=== PATIENT | male | born 1960 | race Caucasian/White ===

== ENCOUNTER → 2019-08-20 09:55 | Outpatient (BNVA) | payer MEDICARE, MEDICAID, SELFPAY | PROVIDERS: Family Provider Family Medicine; PCP Family Medicine; Visit Provider Family Medicine | DX: F41.1 Generalized anxiety disorder (principal); F51.04 Psychophysiologic insomnia; R68.89 Other general symptoms and signs; J01.90 Acute sinusitis, unspecified; B96.89 Other specified bacterial agents as the cause of diseases classified elsewhere | CPT/HCPCS: 87804 ==

== ENCOUNTER 2019-08-29 12:27 | Outpatient (CLI) | payer MEDICARE, MEDICAID, SELFPAY ==
[2019-08-29 13:18] LABS: Testosterone Total 9.9 ng/dL (193-740)
[2019-08-29 13:19] LABS: Prostate Specific Antigen 0.19 ng/mL (0-4)
[2019-08-29 13:30] LABS: Alanine Aminotransferase 28 U/L (0-41); Alkaline Phosphatase 80 IU/L (40-130); Anion Gap 18.1 (5-19); Aspartate Amino Transferase 20 U/L (0-40); Blood Urea Nitrogen 18 mg/dL (8-23); Calcium 9.7 mg/dL (8.5-10.5); Carbon Dioxide 25 mmol/L (22-29); Chloride 98 mmol/L (98-107); Glomerular Filtration Rate 98.6 mL/min (90-130); Glucose 113 mg/dL (65-115); Potassium 4.1 mmol/L (3.5-5.1); Sodium 137 mmol/L (136-145); Total Bilirubin 0.2 mg/dL (0.15-1.2)
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
== END 2019-08-29 12:28 | disposition home or self-care (01) ==
LOC: ONCMED 12:30
PROVIDERS: Family Provider Family Medicine; PCP Family Medicine; Visit Provider Internal Medicine Hematology & Oncology
DX: Z08 Encounter for follow-up examination after completed treatment for malignant neoplasm (principal); Z85.46 Personal history of malignant neoplasm of prostate; K57.30 Diverticulosis of large intestine without perforation or abscess without bleeding; I73.9 Peripheral vascular disease, unspecified; K42.9 Umbilical hernia without obstruction or gangrene; K40.90 Unilateral inguinal hernia, without obstruction or gangrene, not specified as recurrent; Z79.818 Long term (current) use of other agents affecting estrogen receptors and estrogen levels; Z79.899 Other long term (current) drug therapy; Z79.891 Long term (current) use of opiate analgesic; Z92.3 Personal history of irradiation; Z92.23 Personal history of estrogen therapy
CPT/HCPCS: 80053; 84153; 84403; G0463

== ENCOUNTER 2019-11-29 10:23 | Outpatient (CLI) | payer MEDICARE, MEDICAID, SELFPAY ==
[2019-11-29 11:21] LABS: Basophils % 0.6 %; Eosinophils # 0.3 10^3/uL (0.0-0.8); Eosinophils % 3.7 %; Hematocrit 42.4 % (42.0-52.0); Hemoglobin 13.4 g/dL (11.7-16.6); Lymphocytes # 2.8 10^3/uL (0.8-4.8); Lymphocytes % 38.5 %; Mean Corpuscular HGB Conc 31.6 g/dL (30.0-36.0); Mean Corpuscular Hemoglobin 28.2 pg (28.0-34.0); Mean Corpuscular Volume 89.1 fL (80-94); Mean Platelet Volume 8.8 fL (7.4-10.4); Monocytes # 0.9 10^3/uL (0.2-0.9); Neutrophils # 3.2 10^3/uL (1.8-7.7); Neutrophils % 44.5 %; Nucleated Red Blood Cells % 0 %; Platelet Count 284 10^3/cmm (130-400); Red Blood Count 4.76 10^6/uL (4.1-5.3); Red Cell Distribution Width 12.4 % (12.1-15.1); White Blood Count 7.2 10^3/uL (4.0-10.0)
[2019-11-29 11:56] LABS: Prostate Specific Antigen 0.17 ng/mL (0-4)
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
[2019-11-29 12:07] LABS: Alanine Aminotransferase 41 U/L (0-41); Albumin Level 4.5 g/dL (3.5-5.2); Alkaline Phosphatase 78 IU/L (40-130); Anion Gap 18.4 (5-19); Aspartate Amino Transferase 27 U/L (0-40); Blood Urea Nitrogen 21 mg/dL (8-23); Calcium 9.1 mg/dL (8.5-10.5); Carbon Dioxide 25 mmol/L (22-29); Chloride 102 mmol/L (98-107); Globulin 2.3 g/dL (1.3-4.6); Glomerular Filtration Rate 114.6 mL/min (90-130); Glucose 104 mg/dL (65-115); Osmolality Calculated 289 mOsm/kg (285-295); Potassium 4.4 mmol/L (3.5-5.1); Sodium 141 mmol/L (136-145); Total Bilirubin 0.2 mg/dL (0.15-1.2); Total Protein 6.8 g/dL (6.6-8.7)
== END 2019-11-29 10:24 | disposition home or self-care (01) ==
LOC: ONCMED 10:30
PROVIDERS: PCP Family Medicine; Visit Provider Internal Medicine Hematology & Oncology
DX: C61 Malignant neoplasm of prostate (principal); Z92.23 Personal history of estrogen therapy
CPT/HCPCS: 36415; 80053; 84153; 84403; 85025; G0463

== ENCOUNTER → 2020-01-15 14:45 | Outpatient (BNVA) | payer MEDICARE, MEDICAID, SELFPAY | PROVIDERS: PCP Family Medicine; Visit Provider Urology | DX: R39.9 Unspecified symptoms and signs involving the genitourinary system (principal); N32.3 Diverticulum of bladder; C61 Malignant neoplasm of prostate; R33.9 Retention of urine, unspecified; N40.0 Benign prostatic hyperplasia without lower urinary tract symptoms | CPT/HCPCS: 81001 ==

== ENCOUNTER 2020-03-18 14:08 | Outpatient (CLI) | payer MEDICARE, MEDICAID, SELFPAY ==
[2020-03-18 15:16] LABS: Prostate Specific Antigen 0.163 ng/mL (0-4)
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
== END 2020-03-18 14:09 | disposition home or self-care (01) ==
LOC: ONCMED 14:14
PROVIDERS: PCP Family Medicine; Visit Provider Internal Medicine Hematology & Oncology
DX: Z08 Encounter for follow-up examination after completed treatment for malignant neoplasm (principal); Z85.46 Personal history of malignant neoplasm of prostate; Z92.3 Personal history of irradiation; R30.9 Painful micturition, unspecified; Z92.23 Personal history of estrogen therapy
CPT/HCPCS: 84153; G0463

== ENCOUNTER 2020-03-31 11:11 | Inpatient (IN) | payer MEDICARE, SELFPAY ==
[2020-03-31] VITALS (10 sets, daily range): BP systolic 84–125; BP diastolic 57–86; PULSE 118–145; RESP 16–24; TEMP 36.8–36.9; O2SAT 93–96; BMI 34.9
--- NOTE | 2020-03-31 12:07 | XR_ITS ---
WS: [id number] XR chest 1V portable [id number] REASON FOR EXAM: sepsis FINDINGS: Heart and mediastinum are within normal limits. No active pulmonary parenchymal pleural disease is noted. Bony thorax is intact. XR/XR chest 1V portable [id number] IMPRESSION: No acute chest abnormality.
[2020-03-31] MEDS: ondansetron 2 mg/ML SDV 2 mL 4 MG IVP (12:14)
[2020-03-31] MEDS: LORazepam 2 mg/mL INJ 1 mL 0.5 MG IVP (12:16)
[2020-03-31] MEDS: fentaNYL 50 mcg/mL INJ 2mL 100 MCG IVP (12:17)
[2020-03-31 12:23] LABS: Basophils # 0.1 10^3/uL (0.0-0.1); Basophils % 0.4 %; Eosinophils % 0.1 %; Hematocrit 44.1 % (42.0-52.0); Hemoglobin 13.9 g/dL (11.7-16.6); Lymphocytes % 8.1 %; Mean Corpuscular HGB Conc 31.5 g/dL (30.0-36.0); Mean Corpuscular Hemoglobin 28.4 pg (28.0-34.0); Mean Corpuscular Volume 90.2 fL (80-94); Mean Platelet Volume 9.1 fL (7.4-10.4); Monocytes # 0.2 10^3/uL (0.2-0.9); Monocytes % 1.9 %; Neutrophils # 11.34 10^3/uL (1.8-7.7); Neutrophils % 89.2 %; Nucleated Red Blood Cells % 0 %; Platelet Count 278 10^3/cmm (130-400); Red Blood Count 4.89 10^6/uL (4.1-5.3); Red Cell Distribution Width 12.8 % (12.1-15.1); White Blood Count 12.7 10^3/uL (4.0-10.0)
[2020-03-31] MEDS: piperacillin-tazobactam 3.375 GM in sodium chloride 0.9% (plus) 50 ML IV ×2 (12:35→21:59)
[2020-03-31 12:46] LABS: INR 0.87 (0.8-1.2)
[2020-03-31 12:50] LABS: Lactic Sepsis W/Reflex 3.9 mmol/L (0.5-2.2)
[2020-03-31 13:12] LABS: Alanine Aminotransferase 36 U/L (0-41); Albumin Level 4.6 g/dL (3.5-5.2); Alkaline Phosphatase 98 IU/L (40-130); Anion Gap 18.9 (5-19); Aspartate Amino Transferase 28 U/L (0-40); Blood Urea Nitrogen 16 mg/dL (8-23); Calcium 9.5 mg/dL (8.5-10.5); Carbon Dioxide 19 mmol/L (22-29); Chloride 100 mmol/L (98-107); Globulin 3.3 g/dL (1.3-4.6); Glomerular Filtration Rate 61.6 mL/min (90-130); Glucose 105 mg/dL (65-115); Osmolality Calculated 280 mOsm/kg (285-295); Potassium 3.9 mmol/L (3.5-5.1); Sodium 134 mmol/L (136-145); Total Bilirubin 0.4 mg/dL (0.15-1.2); Total Protein 7.9 g/dL (6.6-8.7)
[2020-03-31 13:34] LABS: Add Urine Microscopic? YES; Bilirubin Urine 1+ (Negative); Blood Urine 2+ (Negative); Glucose Urine UA Norm (Normal); Ketones Urine Negative (Negative); Leukocyte Esterase Urine Trace (Negative); Nitrate Urine Positive (Negative); Protein Urine 1+ (Negative); Specific Gravity, Urine 1.015 (1.005-1.030); Urine Appearance Hazy (CLEAR); Urine Color Orange (Yellow); Urobilinogen Urine 1 mg/dL (Negative); pH Urine 6 (5-7)
[2020-03-31 13:36] LABS: RBC Urine 50-80 /hpf (0-2); WBC Urine 15-25 /hpf (0-5)
[2020-03-31 13:37] LABS: Add Urine Culture? No; Bacteria Urine 2+ /hpf; Squamous Epithelial Cell Urine 0-4 /hpf (0-5); Transitional Epi Cells Urine 0-4 /hpf
[2020-03-31 14:03] LABS: Reflex Lactate Order REFLEX LACTIC ORDERD
--- NOTE | 2020-03-31 14:18 | ECG_ITS ---
[facility] Test Date: 2020-03-31 Pat Name: Conrad Montez Department: Room: Gender: Male Radiology Manager: : 1960 Requested By: Micki Schumacher Order Number: [id number] Juan MD: Shanice Villavicencio M.D. Measurements Intervals [place] Rate: 148 P: 47 VA: 142 QRS: 30 QRSD: 90 T: 48 QT: 285 QTc: 448 Interpretive Statements SINUS TACHYCARDIA, POSSIBLE ATRIAL FLUTTER INDETERMINATE AXIS ABNORMAL RHYTHM ECG No previous ECG available for comparison Electronically Signed On 03-31-2020 20:54:22 CDT by Shanice Villavicencio M.D. [id number]
[2020-03-31 14:35] LABS: Magnesium 1.7 mg/dL (1.7-2.3)
[2020-03-31 15:34] LABS: Lactic Acid level (Lactate) 2.1 mmol/L (0.5-2.2)
--- NOTE | 2020-03-31 15:53 | ED_ITS ---
HPI - Male Genitourinary General: Chief complaint: Urogenital-Male Stated complaint: genital area pain Time Seen by Provider: 03/31/20 11:59 History of Present Illness: HPI Narrative: This patient is a 59-year-old male presents today with abdominal pain. He said he has not been able to urinate for at least 24 hours. He is quite vague on when the last time he was able to urinate normally. It sounds like the symptoms have been progressing over the past several weeks. He is got a history of prostate cancer and had a radical prostatectomy. He is also had radiation treatment. He sees Dr. Randolph. He has had some nausea and constipation as well. He complains of pain in his whole genital area. MD Complaint: other (Unable to urinate, abdominal pain and genital pain) Onset (ago): hour(s) (24) Duration: progressively worsening Location: penis, right testicle, left testicle, right inguinal region, left inguinal region and abdomen Severity: severe Quality: aching and burning Relieving factors: none Exacerbating factors: none Context: other (History of prostate cancer) Associated symptoms: Reports fevers/chills, nausea and urinary retention Review of Systems General: Reports: 10 or more systems reviewed and unremarkable except in HPI and below Const: Denies: fatigue or malaise Eyes: Denies: change in vision ENMT: Denies: odynophagia Card: Denies: chest pain or swelling of feet/ankles Resp: Denies: dyspnea, productive cough or non-productive cough GI: Reports: nausea : Denies: flank pain Musc: Denies: neck pain or back pain Skin/Breast: Denies: rash Neuro: Denies: headache(s), numbness in extremities or weakness in extremities Raymond/Lymph: Denies: easy bruising or easy bleeding PFSH ED PFSH: Medical History Bladder diverticulum BPH (benign prostatic hyperplasia) Chronic pain Erectile dysfunction CHAMP (generalized anxiety disorder) Incomplete bladder emptying Lower urinary tract symptoms Prostate cancer PTSD (post-traumatic stress disorder) Surgical History History of back surgery History of bladder surgery History of elbow surgery History of prostate biopsy Status post colon resection SIGMOID RESECTION Status post decompression of ulnar nerve Family History Father , FATHER AT AGE 48-[place] No problems noted. Mother , AT AGE 80-[place] No problems noted. Social History Smoking and tobacco status: never smoked Alcohol intake: never Marital status: Current occupational status: disabled History of recent travel: No Current gender identity: Male Physical Exam Const: COMMON NORMALS: patient oriented x3, no limitations and alert GENERAL APPEARANCE: cooperative HENMT: HEAD & SCALP: normal to inspection FACE & SINUS: normal facial exam Eye: GENERAL EYE: appearance normal, both eyes and all related structures Neck/C-Spine: COMMON NORMALS: supple, no meningeal signs and no JVD Chest: COMMONS NORMALS: normal inspection of the chest Resp: COMMON NORMALS: normal respiratory effort, No use of accessory muscles and clear to auscultation bilaterally AUSCULTATION: clear to auscultation bilaterally Cardio: COMMON NORMALS: no JVD, regular rate, regular rhythm and No murmurs present (Cardio) RATE: regular rate RHYTHM: regular rhythm GI: COMMON NORMALS: Normal to inspection, nondistended, normoactive bowel sounds present INSPECTION: Yes abdominal distension PALPATION: Yes Tenderness to palpation present (GI) and Yes Bladder palpation abnormal : COMMON NORMALS: Yes Testes normal, Yes scrotum normal and Yes no scrotal swelling BLADDER/KIDNEY EXAM: Yes Bladder palpation abnormal MALE GROIN/PERINEUM EXAM: No edema, No erythema, No perineal induration, No Perineum crepitus present and No tenderness Back/Pelvis: COMMON NORMALS: thoracic and lumbar spine normal to inspection Extremity: COMMON NORMALS: normal to inspection Neuro: COMMON NORMALS: patient oriented x3, moves all extremities, no focal motor deficits and no sensory deficits noted SENSORIUM/ORIENTATION: Yes alert MENINGEAL SIGNS: Yes no meningeal signs Psych: COMMON NORMALS: mental status grossly normal, cooperative and normal affect Skin: COMMON NORMALS: no rashes or lesions noted and turgor normal GENERAL SKIN EXAM: no rashes or lesions noted and turgor normal Course ED course: Patient was in significant distress on arrival. He was also markedly tachycardic in the 150s with hypotension with a systolic in the 80s. He was given 30 ml per kilo of fluids and IV antibiotics. Garcia catheter was placed and drained 2 L of fluid immediately. The nurse then clamped the Garcia but later another liter was drained. Patient has significant relief of his pain with this. His blood pressure also responded to the fluids. His heart rate came down into the 120s and his blood pressure came up into the 110s to 120s. Dr. Randolph's been consulted and will see the patient. He will be admitted to the cardiac stepdown unit with close monitoring. Hospitalist will admit. Vital Signs: Vital signs: Vital Signs Temperature 98.2 F 03/31/20 19:58 Pulse Rate 118 H 03/31/20 19:58 Respiratory Rate 20 H 03/31/20 19:58 Blood Pressure 99/57 03/31/20 19:58 Pulse Oximetry 94 03/31/20 19:58 MDM - Male Lab Data: Labs: Lab Results 03/31/20 03/31/20 03/31/20 Range/Units 12:05 12:05 12:05 WBC 12.7 H (4.0-10.0) 10^3/ uL RBC 4.89 (4.1-5.3) 10^6/u L Hgb 13.9 (11.7-16.6) g/dL Hct 44.1 (42.0-52.0) % MCV 90.2 (80-94) fL MCH 28.4 (28.0-34.0) pg MCHC 31.5 (30.0-36.0) g/dL RDW 12.8 (12.1-15.1) % Plt Count 278 (130-400) 10^3/c mm MPV 9.1 (7.4-10.4) fL Neut % (Auto) 89.2 % Lymph % (Auto) 8.1 % [place] % (Auto) 1.9 % Eos % (Auto) 0.1 % Baso % (Auto) 0.4 % Neut # (Auto) 11.34 H (1.8-7.7) 10^3/u L Lymph # (Auto) 1.0 (0.8-4.8) 10^3/u L [place] # (Auto) 0.2 (0.2-0.9) 10^3/u L Eos # (Auto) 0.0 (0.0-0.8) 10^3/u L Baso # (Auto) 0.1 (0.0-0.1) 10^3/u L Nucleated RBC % (a uto) 0 % Nucleated RBCs # 0.0 /100WBC PT 12.10 (12.1-14.9) SECO NDS INR 0.87 (0.8-1.2) Sodium 134 L (136-145) mmol/L Potassium 3.9 (3.5-5.1) mmol/L Chloride 100 (98-107) mmol/L Carbon Dioxide 19 L (22-29) mmol/L Anion Gap 18.9 (5-19) BUN 16 (8-23) mg/dL Creatinine 1.2 (0.7-1.2) mg/dL GFR Calculation 61.6 L (90-130) mL/min Glucose 105 (65-115) mg/dL Calculated Osmolal ity 280 L (285-295) mOsm/k g Lactic Acid (0.5-2.2) mmol/L Lactic Acid (Sepsi s) (0.5-2.2) mmol/L Calcium 9.5 (8.5-10.5) mg/dL Magnesium (1.7-2.3) mg/dL Total Bilirubin 0.4 (0.15-1.2) mg/dL AST 28 (0-40) U/L ALT 36 (0-41) U/L Alkaline Phosphata se 98 (40-130) IU/L Total Protein 7.9 (6.6-8.7) g/dL Albumin 4.6 (3.5-5.2) g/dL Globulin 3.3 (1.3-4.6) g/dL Procalcitonin 2.80 H (0-0.5) ng/mL Urine Color (Yellow) Urine Appearance (CLEAR) Urine pH (5-7) Ur Specific Gravit y (1.005-1.030) Urine Protein (Negative) Urine Glucose (UA) (Normal) Urine Ketones (Negative) Urine Blood (Negative) Urine Nitrate (Negative) Urine Bilirubin (Negative) Urine Urobilinogen (Negative) mg/dL Ur Leukocyte Adriana ase (Negative) Urine RBC (0-2) /hpf Urine WBC (0-5) /hpf Ur Squamous Epith Cells (0-5) /hpf Ur Transition Epit h Cell /hpf Amorphous Sediment Urine Bacteria (NONE) /hpf 03/31/20 03/31/20 03/31/20 Range/Units 12:05 12:05 12:28 WBC (4.0-10.0) 10^3/ uL RBC (4.1-5.3) 10^6/u L Hgb (11.7-16.6) g/dL Hct (42.0-52.0) % MCV (80-94) fL MCH (28.0-34.0) pg MCHC (30.0-36.0) g/dL RDW (12.1-15.1) % Plt Count (130-400) 10^3/c mm MPV (7.4-10.4) fL Neut % (Auto) % Lymph % (Auto) % [place] % (Auto) % Eos % (Auto) % Baso % (Auto) % Neut # (Auto) (1.8-7.7) 10^3/u L Lymph # (Auto) (0.8-4.8) 10^3/u L [place] # (Auto) (0.2-0.9) 10^3/u L Eos # (Auto) (0.0-0.8) 10^3/u L Baso # (Auto) (0.0-0.1) 10^3/u L Nucleated RBC % (a uto) % Nucleated RBCs # /100WBC PT (12.1-14.9) SECO NDS INR (0.8-1.2) Sodium (136-145) mmol/L Potassium (3.5-5.1) mmol/L Chloride (98-107) mmol/L Carbon Dioxide (22-29) mmol/L Anion Gap (5-19) BUN (8-23) mg/dL Creatinine (0.7-1.2) mg/dL GFR Calculation (90-130) mL/min Glucose (65-115) mg/dL Calculated Osmolal ity (285-295) mOsm/k g Lactic Acid 3.9 H (0.5-2.2) mmol/L Lactic Acid (Sepsi s) (0.5-2.2) mmol/L Calcium (8.5-10.5) mg/dL Magnesium 1.7 (1.7-2.3) mg/dL Total Bilirubin (0.15-1.2) mg/dL AST (0-40) U/L ALT (0-41) U/L Alkaline Phosphata se (40-130) IU/L Total Protein (6.6-8.7) g/dL Albumin (3.5-5.2) g/dL Globulin (1.3-4.6) g/dL Procalcitonin (0-0.5) ng/mL Urine Color Maries (Yellow) Urine Appearance Hazy A (CLEAR) Urine pH 6 (5-7) Ur Specific Gravit y 1.015 (1.005-1.030) Urine Protein 1+ H (Negative) Urine Glucose (UA) Norm (Normal) Urine Ketones Negative (Negative) Urine Blood 2+ H (Negative) Urine Nitrate Positive H (Negative) Urine Bilirubin 1+ H (Negative) Urine Urobilinogen 1 H (Negative) mg/dL Ur Leukocyte Adriana ase Trace H (Negative) Urine RBC 50-80 H (0-2) /hpf Urine WBC 15-25 H (0-5) /hpf Ur Squamous Epith Cells 0-4 H (0-5) /hpf Ur Transition Epit h Cell 0-4 /hpf Amorphous Sediment Not Reportable Urine Bacteria 2+ H (NONE) /hpf 03/31/20 Range/Units 15:11 WBC (4.0-10.0) 10^3/ uL RBC (4.1-5.3) 10^6/u L Hgb (11.7-16.6) g/dL Hct (42.0-52.0) % MCV (80-94) fL MCH (28.0-34.0) pg MCHC (30.0-36.0) g/dL RDW (12.1-15.1) % Plt Count (130-400) 10^3/c mm MPV (7.4-10.4) fL Neut % (Auto) % Lymph % (Auto) % [place] % (Auto) % Eos % (Auto) % Baso % (Auto) % Neut # (Auto) (1.8-7.7) 10^3/u L Lymph # (Auto) (0.8-4.8) 10^3/u L [place] # (Auto) (0.2-0.9) 10^3/u L Eos # (Auto) (0.0-0.8) 10^3/u L Baso # (Auto) (0.0-0.1) 10^3/u L Nucleated RBC % (a uto) % Nucleated RBCs # /100WBC PT (12.1-14.9) SECO NDS INR (0.8-1.2) Sodium (136-145) mmol/L Potassium (3.5-5.1) mmol/L Chloride (98-107) mmol/L Carbon Dioxide (22-29) mmol/L Anion Gap (5-19) BUN (8-23) mg/dL Creatinine (0.7-1.2) mg/dL GFR Calculation (90-130) mL/min Glucose (65-115) mg/dL Calculated Osmolal ity (285-295) mOsm/k g Lactic Acid (0.5-2.2) mmol/L Lactic Acid (Sepsi s) 2.1 (0.5-2.2) mmol/L Calcium (8.5-10.5) mg/dL Magnesium (1.7-2.3) mg/dL Total Bilirubin (0.15-1.2) mg/dL AST (0-40) U/L ALT (0-41) U/L Alkaline Phosphata se (40-130) IU/L Total Protein (6.6-8.7) g/dL Albumin (3.5-5.2) g/dL Globulin (1.3-4.6) g/dL Procalcitonin (0-0.5) ng/mL Urine Color (Yellow) Urine Appearance (CLEAR) Urine pH (5-7) Ur Specific Gravit y (1.005-1.030) Urine Protein (Negative) Urine Glucose (UA) (Normal) Urine Ketones (Negative) Urine Blood (Negative) Urine Nitrate (Negative) Urine Bilirubin (Negative) Urine Urobilinogen (Negative) mg/dL Ur Leukocyte Adriana ase (Negative) Urine RBC (0-2) /hpf Urine WBC (0-5) /hpf Ur Squamous Epith Cells (0-5) /hpf Ur Transition Epit h Cell /hpf Amorphous Sediment Urine Bacteria (NONE) /hpf Discharge Plan Discharge Patient Disposition: Admitted As Inpatient Admit Provider: Damien Rios Clinical Impression: Acute retention of urine Urinary tract infection Qualifiers: Urinary tract infection type: site unspecified Hematuria presence: with hematuria Qualified Code(s): N39.0 - Urinary tract infection, site not specified Sepsis Qualifiers: Sepsis type: sepsis due to unspecified organism Sepsis acute organ dysfunction status: unspecified Qualified Code(s): A41.9 - Sepsis, unspecified organism Condition: Stable Referrals: Elaine Escalante DO [Primary Care Provider] - Discharge Date/Time: 03/31/20 17:06 Coding Level of Care Code ED Database Administration Manager for [facility] Fwd Exam Comprehensive
[2020-03-31] MEDS: lactated ringers 1,000 ML 999 ML IV (16:14)
[2020-03-31] MEDS: sodium chloride 0.9% 1,000 ML 150 ML IV (17:17)
--- NOTE | 2020-03-31 17:38 | P.HP_ITS ---
Providers/Chief Complaint Admitting Physician: Damien Rios MD Primary Care Provider: Elaine Escalante DO Chief Complaint: genital area pain History of Present Illness Conrad Montez is a 59 year old male with PMH of adenocarcinoma of the prostate s/p prostate cancer with large volume Liliam 4+3 and 3+4 and PSA at approximately 10 at diagnosis.S/P radiation therapy plus hormonal manipulation.Was admitted today with acute urinary retention.He is having difficulty passing urine for the last 3 days and it have progressively got worsened to the point that he has not passed any urine in the last 24h. He denies any, fever,chills,cough,sob,nausea,vomitting,abdominal pain,chest anjel n,palpitation. I the E.R Mcadams tube was placed for acute urinary retention and 2l urine output was acheived. He was also hypotensive in the ER with sbp in high 8os , he responded to fluid bolus. Patient was worked up for acute urinary retention and sepsis likely 2/2 to UTI. Lactic acid is :3.9, Procalcitonin is : 2.8 WBC : 12.7 , Urine analysis : Dirty. Blood Culture :Collected. EKG:Sinus Tachycardia Xray Chest : No acute chest abnormality Review of Systems General: Reports: 10 or more systems reviewed and unremarkable except in HPI and below Const: Denies: fever(s), chills, body aches, change in appetite or diaphoresis Card: Denies: palpitations, edema, swelling of feet/ankles, dyspnea on exertion, orthopnea or leg pain with exertion Resp: Denies: dyspnea, productive cough, wheezing or pain on inspiration GI: Denies: abdominal pain, nausea, vomiting, diarrhea or constipation Musc: Denies: back pain, extremity pain or extremity swelling Neuro: Denies: headache(s), difficulty walking or confusion Medications/Allergies Home Medications Medication Instructions Recorded Confirmed Last Taken Type venlafaxine 150 mg 150 mg PO DAILY #90 cap 08/20/19 03/31/20 Unknown Rx capsule,extended release 24 hr tamsulosin 0.4 mg capsule 0.4 mg PO BID #180 cap 01/15/20 03/31/20 03/30/20 Rx hydrocodone-acetaminophen 1 - 2 tab PO Q4H PRN 03/31/20 03/31/20 03/31/20 11:00 History 2 tabs naproxen sodium [Aleve] 660 mg PO PRN 03/31/20 03/31/20 Unknown History trazodone 150 mg PO BEDTIME 03/31/20 03/31/20 03/30/20 History Allergies Allergy/AdvReac Type Severity Reaction Status Date / Time No Known Allergies Allergy Verified 03/31/20 14:29 PFSH Acute PFSH: Medical History Bladder diverticulum BPH (benign prostatic hyperplasia) Chronic pain Erectile dysfunction CHAMP (generalized anxiety disorder) Incomplete bladder emptying Lower urinary tract symptoms Prostate cancer PTSD (post-traumatic stress disorder) Surgical History History of back surgery History of bladder surgery History of elbow surgery History of prostate biopsy Status post colon resection SIGMOID RESECTION Status post decompression of ulnar nerve Family History Father , FATHER AT AGE 48-[place] No problems noted. Mother , AT AGE 80-[place] No problems noted. Social History Smoking and tobacco status: never smoked Alcohol intake: never Marital status: Current occupational status: disabled History of recent travel: No Current gender identity: Male Vitals/I&O/Wt Last Vital Signs Temp 98.5 F 03/31/20 11:48 Pulse 121 H 03/31/20 17:00 Resp 24 H 03/31/20 17:00 BP 99/65 03/31/20 17:00 Pulse Ox 96 03/31/20 17:00 03/31/20 03/31/20 03/31/20 06:59 14:59 22:59 Intake Total 3300 / 3300 Output Total 3000 / 3000 Balance 300 / 300 Weight last 48 hrs Weight 104.326 kg Physical Exam Const: COMMON NORMALS: patient oriented x3 HENMT: COMMON NORMALS: normocephalic, atraumatic, hearing grossly normal bilaterally and external ears normal HEAD & SCALP: normocephalic and at raumatic EXTERNAL EAR: Yes external ears normal Eye: COMMON NORMALS: no scleral icterus GENERAL EYE: appearance normal, both eyes and all related structures Chest: COMMONS NORMALS: normal inspection of the chest and normal palpation of entire chest wall CHEST: Yes Symmetrical chest wall rise Resp: COMMON NORMALS: normal respiratory effort, No retractions, No use of accessory muscles and clear to auscultation bilaterally EFFORT & INSPECTION: Yes symmetric chest movement AUSCULTATION: clear to auscultation bilaterally Cardio: COMMON NORMALS: regular rate, regular rhythm, S1 normal heart sound present, S2 normal heart sound present, No gallops present (Cardio), No murmurs present (Cardio), No rub (Cardio) and Peripheral pulses 2+ throughout RATE: regular rate RHYTHM: regular rhythm HEART SOUNDS: S1 normal heart sound present and S2 normal heart sound present PERIPHERAL PULSES: Peripheral pulses 2+ throughout GI: COMMON NORMALS: Normal to inspection, nondistended, normoactive bowel sounds present, Soft to palpation, non-tender, No hepatosplenomegaly present and no masses AUSCULTATION: Yes normoactive bowel sounds PALPATION: Yes Soft to palpation and Yes No hepatosplenomegaly present RECTAL EXAM: Yes deferred : COMMON NORMALS: Yes no CVA tenderness BLADDER/KIDNEY EXAM: Yes no CVA tenderness Back/Pelvis: COMMON NORMALS: no CVA tenderness Extremity: COMMON NORMALS: no clubbing, cyanosis or edema and no pedal edema Neuro: COMMON NORMALS: patient oriented x3 Urinary Catheter Management^: Mcadams: Cath Placed During This Visit: yes Urinary Catheter Date of Insertion: 03/31/20 Data : 03/31/20 12:05 03/31/20 12:05 Micro: Microbiology 03/31/20 12:50 Blood Culture - Preliminary Blood SPECIMEN COLLECTED 03/31/20 12:54 Blood Culture - Preliminary Blood SPECIMEN COLLECTED A&P Assessment and plan (1) Sepsis: Patient was worked up for acute urinary retention and sepsis likely 2/2 to UTI hypotensive in the ER with sbp in high 8os , he responded to fluid bolus. Lactic acid is :3.9, Procalcitonin is : 2.8 WBC : 12.7 , Urine analysis : Dirty. Blood Culture :Collected. EKG:Sinus Tachycardia Xray Chest : No acute chest abnormality Currently on vancomycin and Zosyn Will repeat lactic acid and procal. Will continue with I.V Hydration. Status: Acute Qualifiers: Sepsis acute organ dysfunction status: unspecified Sepsis type: sepsis due to unspecified organism Qualified Code(s): A41.9 - Sepsis, unspecified organism (2) Acute retention of urine: Currently has indwelling mcadams cath. is on board. Appreciate Rec. Status: Acute (3) Urinary tract infection: Plan as 1 . Status: Acute Qualifiers: Hematuria presence: with hematuria Urinary tract infection type: site unspecified Qualified Code(s): N39.0 - Urinary tract infection, site not specified; R31.9 - Hematuria, unspecified (4) Bladder diverticulum: Status: Acute (5) Prostate cancer: No acute Intervention.Follow as outpatient Status: Acute (6) Chronic insomnia: On Trazadone Status: Chronic (7) CHAMP (generalized anxiety disorder): No acute Intervention. Venlafaxine 150 mg er po daily Status: Chronic Additional A&P Information Code Status: Full Code DVT PPX: Lovenox 40 mg sc daily Attestations Medical Necessity Statement*: Patient need to be in hospital for sepsis management. Coding Level of Care Code Acute Digital Developer for [facility] Fwd Diagnoses Sepsis A41.9 Sepsis acute organ dysfunction status: unspecified Sepsis type: sepsis due to unspecified organism Acute retention of urine R33.8 Urinary tract infection N39.0; R31.9 Hematuria presence: with hematuria Urinary tract infection type: site unspecified Bladder diverticulum N32.3 Prostate cancer C61 Chronic insomnia F51.04 CHAMP (generalized anxiety disorder) F41.1
[2020-03-31] MEDS: sodium chloride 0.9% 1,000 ML 125 ML IV (17:45)
[2020-03-31] MEDS: tamsulosin 0.4 mg Capsule PO (17:46)
[2020-03-31] MEDS: enoxaparin 40 mg/0.4 mL Syringe SUBCUT (17:50)
--- NOTE | 2020-03-31 18:57 | P.CONIM_ITS ---
Providers/Reason For Consult Attending Physician: Damien Rios MD Primary Care Provider: Elaine Escalante DO History of Present Illness History of Present Illness Patient well-known to me for history of prostate cancer with large volume [place] 4+3 and 3+4 and PSA at approximately 10 at diagnosis. Treatment included radiation therapy plus hormonal manipulation. Has been followed recently by Dr. Roth at [facility]. At last visit his PSA was 0.17. PVR was measured at about 360 cc which was expected to be related to his large bladder diverticulum. He thought that his stream might be slowing down. Was placed on tamsulosin and then double dose tamsulosin and thought it made a big difference. Was scheduled to see me again in 1 year unless increasing symptoms. Presented to the emergency department today with about 2 days of difficulty voiding. Catheter was placed due to extremis and he had reportedly about 4 L of urine output per the patient. Will need to confirm that. Urine is currently clear. Immediate relief after catheter placement. Because of concern related for sepsis with tachycardia, soft blood pressure, leukocytosis, tachypnea he was admitted for IV antibiotics and supportive care. I was consulted for evaluation of voiding dysfunction. Review of Systems Const: Reports: malaise Eyes: Denies: change in vision or blurry vision ENMT: Denies: odynophagia Card: Denies: chest pain or palpitations Resp: Denies: dyspnea or productive cough GI: Reports: abdominal pain, GI cramping and rectal pain : Reports: difficulty urinating, urinary dribbling, difficulty starting urination and other Musc: Denies: joint redness or joint warmth Skin/Breast: Denies: rash Neuro: Denies: confusion, Slurred speech present or seizure-like activity Psych: Denies: anxiety Endo: Reports: hot flashes Raymond/Lymph: Denies: easy bruising or easy bleeding All/Imm: Denies: urticaria Meds/Allergies Home Medications and Allergies Home Medications Medication Instructions Recorded Confirmed Last Taken Type venlafaxine 150 mg 150 mg PO DAILY #90 cap 08/20/19 03/31/20 Unknown Rx capsule,extended release 24 hr tamsulosin 0.4 mg capsule 0.4 mg PO BID #180 cap 01/15/20 03/31/20 03/30/20 Rx hydrocodone-acetaminophen 1 - 2 tab PO Q4H PRN 03/31/20 03/31/20 03/31/20 11:00 History 2 tabs naproxen sodium [Aleve] 660 mg PO PRN 03/31/20 03/31/20 Unknown History trazodone 150 mg PO BEDTIME 03/31/20 03/31/20 03/30/20 History Allergies Allergy/AdvReac Type Severity Reaction Status Date / Time No Known Allergies Allergy Verified 03/31/20 14:29 Current Medications Current Medications Generic Name Dose Route Start Last Admin Trade Name Frenina PRN Reason Stop Dose Admin Enoxaparin Sodium 40 mg 03/31/20 18:00 03/31/20 17:50 Lovenox SUBCUT 40 mg Q24H SPRING Administration Sodium Chloride 1,000 mls @ 125 mls/hr 03/31/20 17:30 03/31/20 17:45 Sodium Chloride 0.9% IV 125 mls/hr .Q8H SPRING Administration Tamsulosin HCl 0.4 mg 03/31/20 18:00 03/31/20 17:46 Flomax PO 0.4 mg BID SPRING Administration PFSH Acute PFSH: Medical History Bladder diverticulum BPH (benign prostatic hyperplasia) Chronic pain Erectile dysfunction CHAMP (generalized anxiety disorder) Incomplete bladder emptying Lower urinary tract symptoms Prostate cancer PTSD (post-traumatic stress disorder) Surgical History History of back surgery History of bladder surgery History of elbow surgery History of prostate biopsy Status post colon resection SIGMOID RESECTION Status post decompression of ulnar nerve Family History Father , FATHER AT AGE 48-[place] No problems noted. Mother , AT AGE 80-[place] No problems noted. Social History Smoking and tobacco status: never smoked Alcohol intake: never Marital status: Current occupational status: disabled History of recent travel: No Current gender identity: Male Vitals/I&O/Wt Last Vital Signs Temp 98.5 F 03/31/20 11:48 Pulse 124 H 03/31/20 18:01 Resp 18 03/31/20 18:01 BP 99/65 03/31/20 17:00 Pulse Ox 94 03/31/20 18:01 03/31/20 03/31/20 03/31/20 06:59 14:59 22:59 Intake Total 3300 / 3300 Output Total 3000 / 3000 Balance 300 / 300 Weight last 48 hrs Weight 230 lb Physical Exam Const: COMMON NORMALS: no acute distress, alert and well nourished GENERAL APPEARANCE: well kempt and well developed ORIENTATION/CONSCIOUSNESS: not confused HENMT: COMMON NORMALS: normocephalic and atraumatic HEAD & SCALP: normocephalic and atraumatic Eye: COMMON NORMALS: conjunctivae normal and no scleral icterus CONJUNCTIVA: Yes conjunctivae normal Neck/C-Spine: COMMON NORMALS: full ROM GENERAL: Yes normal visual inspection Lymph: LYMPHATIC: no lymphedema noted Resp: COMMON NORMALS: normal respiratory effort EFFORT & INSPECTION: No labored and No Actively coughing Cardio: COMMON NORMALS: regular rate and regular rhythm RATE: regular rate RHYTHM: regular rhythm : OTHER: Normal phallus. Catheter in place draining yellow urine. Normal scrotal scrotal contents Extremity: COMMON NORMALS: no clubbing, cyanosis or edema Neuro: COMMON NORMALS: no focal motor deficits SENSORIUM/ORIENTATION: Yes alert Psych: COMMON NORMALS: mental status grossly normal APPEARANCE: Yes grossly normal and Yes well kempt ATTITUDE: Yes calm and Yes engaged Skin: COMMON NORMALS: no rashes or lesions noted and no jaundice GENERAL SKIN EXAM: no rashes or lesions noted Urinary Catheter Management^: Garcia: Cath Placed During This Visit: yes Urinary Catheter Date of Insertion: 03/31/20 Data Micro: Micro: Microbiology 03/31/20 12:50 Blood Culture - Pr eliminary Blood SPECIMEN [facility] ANA 03/31/20 12:54 Blood Culture - Pr eliminary Blood SPECIMEN [facility] A&P Assessment and plan (1) Acute retention of urine: Status: Acute (2) Sepsis: Status: Acute Qualifiers: Sepsis acute organ dysfunction status: unspecified Sepsis type: sepsis due to unspecified organism Qualified Code(s): A41.9 - Sepsis, unspecified organism (3) Bladder diverticulum: Status: Acute (4) Prostate cancer: Status: Acute Consult Attestations Medical Necessity Statement: Concern for sepsis requires hospitalization for acute care. Coding Level of Care Code Acute Director Of Occupational Therapy for Chg Fwd Diagnoses Acute retention of urine R33.8 Sepsis A41.9 Sepsis acute organ dysfunction status: unspecified Sepsis type: sepsis due to unspecified organism Bladder diverticulum N32.3 Prostate cancer C61
--- NOTE | 2020-03-31 20:57 | PC.NURSE ---
Pt IV was leaking d/t pt getting it caught while getting up. This medical technical writer assessed the Iv and it is still patent. The pt gown does have some dried blood on it and pt refuses to have gown changed at this time.
[2020-03-31] MEDS: trazodone 100 mg Tablet 150 MG PO (22:08)
[2020-04-01] VITALS (7 sets, daily range): BP systolic 101–127; BP diastolic 63–77; PULSE 99–111; RESP 16–20; TEMP 36.6–37.2; O2SAT 90–97
[2020-04-01] MEDS: sodium chloride 0.9% 1,000 ML 125 ML IV ×2 (02:58→13:32)
[2020-04-01 05:20] LABS: Basophils # 0.1 10^3/uL (0.0-0.1); Basophils % 0.4 %; Eosinophils # 0.1 10^3/uL (0.0-0.8); Hemoglobin 10.4 g/dL (11.7-16.6); Lymphocytes # 0.7 10^3/uL (0.8-4.8); Lymphocytes % 6.5 %; Mean Corpuscular HGB Conc 28.9 g/dL (30.0-36.0); Mean Corpuscular Hemoglobin 28.4 pg (28.0-34.0); Mean Corpuscular Volume 98.4 fL (80-94); Mean Platelet Volume 9.4 fL (7.4-10.4); Monocytes # 0.8 10^3/uL (0.2-0.9); Monocytes % 6.8 %; Neutrophils # 9.53 10^3/uL (1.8-7.7); Neutrophils % 84.5 %; Nucleated Red Blood Cells % 0 %; Platelet Count 201 10^3/cmm (130-400); Red Blood Count 3.66 10^6/uL (4.1-5.3); Red Cell Distribution Width 13.3 % (12.1-15.1); White Blood Count 11.3 10^3/uL (4.0-10.0)
[2020-04-01 05:58] LABS: Lactic Sepsis W/Reflex 1.3 mmol/L (0.5-2.2)
[2020-04-01 05:59] LABS: Blood Urea Nitrogen 15 mg/dL (8-23); Calcium 8.3 mg/dL (8.5-10.5); Carbon Dioxide 20 mmol/L (22-29); Chloride 111 mmol/L (98-107); Glomerular Filtration Rate 98.3 mL/min (90-130); Glucose 145 mg/dL (65-115); Magnesium 1.9 mg/dL (1.7-2.3); Osmolality Calculated 293 mOsm/kg (285-295); Phosphorus 3.1 mg/dL (2.5-4.5); Sodium 140 mmol/L (136-145)
[2020-04-01] MEDS: piperacillin-tazobactam 3.375 GM in sodium chloride 0.9% (plus) 50 ML IV ×3 (06:00→22:46)
[2020-04-01 06:01] LABS: Anion Gap 13.2 (5-19); Potassium 4.2 mmol/L (3.5-5.1)
--- NOTE | 2020-04-01 07:00 | US_ITS ---
NOTE: Report was unsigned for reason: Order was edited. Original Signature date and time was: 04/01/20 1431 WS: [id number] RENAL ULTRASOUND URINARY BLADDER ULTRASOUND HISTORY: urinary retention. COMPARISON: None available. TECHNIQUE: 2-D and color Doppler imaging of the kidney submitted. Right kidney: 11.9 cm x 6.0 cm x 5.4 cm. Normal echogenicity with no hydronephrosis or mass. Left kidney: 11.4 cm x 3.9 cm x 6.2 cm. Normal echogenicity with no hydronephrosis or mass. Aorta: Normal. Urinary Bladder: Nondistended urinary bladder. Garcia catheter is present in the bladder. [facility] US/US renal BI with bladder IMPRESSION: Normal renal ultrasound. Nondistended urinary bladder due to Garcia catheter.
[2020-04-01 07:03] LABS: Procalcitonin 24.72 ng/mL (0-0.5)
[2020-04-01] MEDS: venlafaxine ER (24HR) 150 mg Capsule PO (08:27)
[2020-04-01] MEDS: tamsulosin 0.4 mg Capsule PO ×2 (08:27→18:07)
[2020-04-01] MEDS: polyethylene glycol 3350 Pkt 17 gm PO (08:29)
--- NOTE | 2020-04-01 09:28 | P.PN_ITS ---
Subjective Subjective: Interval history: Patient was comfortably sitting in his room. Vitals and labs have been reviewed. Medications: Reviewed: Yes Vitals/I&O/Wt Last Vital Signs Temp 98.4 F 04/01/20 07:32 Pulse 99 04/01/20 07:32 Resp 18 04/01/20 07:32 BP 118/77 04/01/20 07:32 Pulse Ox 93 04/01/20 07:32 03/31/20 04/01/20 04/01/20 22:59 06:59 14:59 Intake Total 3360 / 3360 2500 / 5860 Output Total 3000 / 3000 2200 / 5200 Balance 360 / 360 300 / 660 Weight last 48 hrs Weight 104.326 kg Physical Exam Const: COMMON NORMALS: patient oriented x3 HENMT: COMMON NORMALS: normocephalic, atraumatic, hearing grossly normal bilaterally and external ears normal HEAD & SCALP: normocephalic and atraumatic EXTERNAL EAR: Yes external ears normal Eye: COMMON NORMALS: no scleral icterus GENERAL EYE: appearance normal, both eyes and all related structures Chest: COMMONS NORMALS: normal inspection of the chest and normal palpation of entire chest wall CHEST: Yes Symmetrical chest wall rise Resp: COMMON NORMALS: normal respiratory effort, No retractions, No use of accessory muscles and clear to auscultation bilaterally EFFORT & INSPECTION: Yes symmetric chest movement AUSCULTATION: clear to auscultation bilaterally Cardio: COMMON NORMALS: regular rate, regular rhythm, S1 normal heart sound present, S2 normal heart sound present, No gallops present (Cardio), No murmurs present (Cardio), No rub (Cardio) and Peripheral pulses 2+ throughout RATE: regular rate RHYTHM: regular rhythm HEART SOUNDS: S1 normal heart sound present and S2 normal heart sound present PERIPHERAL PULSES: Peripheral pulses 2+ throughout GI: COMMON NORMALS: Normal to inspection, nondistended, normoactive bowel sounds present, Soft to palpation, non-tender, No hepatosplenomegaly present and no masses AUSCULTATION: Yes normoactive bowel sounds PALPATION: Yes Soft to palpation and Yes No hepatosplenomegaly present RECTAL EXAM: Yes deferred Extremity: COMMON NORMALS: no clubbing, cyanosis or edema and no pedal edema Neuro: COMMON NORMALS: patient oriented x3 Urinary Catheter Management^: Mcadams: Cath Placed During This Visit: yes Reason for Continuing Indwelling Catheter: Acute Urinary Retention or Obstruction Urinary Catheter Date of Insertion: 03/31/20 Data : 04/01/20 04:43 04/01/20 04:43 Micro: Microbiology 03/31/20 12:50 Blood Culture - Preliminary Blood SPECIMEN COLLECTED 03/31/20 12:54 Blood Culture - Preliminary Blood SPECIMEN COLLECTED A&P Assessment and plan (1) Sepsis: Patient was worked up for acute urinary retention and sepsis likely 2/2 to UTI hypotensive in the ER with sbp in high 8os , he responded to fluid bolus. Lactic acid is :3.9, Procalcitonin is : 2.8 WBC : 12.7 , Urine analysis : Dirty. Blood Culture :Collected. EKG:Sinus Tachycardia Xray Chest : No acute chest abnormality Currently on vancomycin and Zosyn Will repeat lactic acid and procal. Will continue with I.V Hydration. Status: Acute Qualifiers: Sepsis acute organ dysfunction status: unspecified Sepsis type: sepsis due to unspecified organism Qualified Code(s): A41.9 - Sepsis, unspecified organism (2) Acute retention of urine: Currently has indwelling mcadams cath. is on board. Appreciate Rec. Status: Acute (3) Urinary tract infection: Plan as 1 . Status: Acute Qualifiers: Hematuria presence: with hematuria Urinary tract infection type: site unspecified Qualified Code(s): N39.0 - Urinary tract infection, site not specified; R31.9 - Hematuria, unspecified (4) Bladder diverticulum: Status: Acute (5) Prostate cancer: No acute Intervention.Follow as outpatient Status: Acute (6) Chronic insomnia: On Trazadone Status: Chronic (7) CHAMP (generalized anxiety disorder): No acute Intervention. Venlafaxine 150 mg er po daily Status: Chronic Additional A&P Information Code Status: Full Code DVT PPX: Lovenox 40 mg sc daily Attestations Medical Necessity Statement*: Patient needs to be hospital for management of sepsis. Coding Level of Care Code Acute Customer Service Consultant for Chg Fwd Diagnoses Sepsis A41.9 Sepsis acute organ dysfunction status: unspecified Sepsis type: sepsis due to unspecified organism Acute retention of urine R33.8 Urinary tract infection N39.0; R31.9 Hematuria presence: with hematuria Urinary tract infection type: site unspecified Bladder diverticulum N32.3 Prostate cancer C61 Chronic insomnia F51.04 CHAMP (generalized anxiety disorder) F41.1
--- NOTE | 2020-04-01 14:06 | PC.CHAP ---
Pastoral Care Encounter/Spiritual Assessment Type of Contact [] Declined parking line painter visit [] Patient/Family/Request visit [] Outpatient visit [] Follow-up visit [] Physician referral [] Code/Alert [X] Routine visit [] Staff referral [] Actively dying [] Patient sleeping [] Family support [] [] Out of room [] Palliative care [] [] Receiving care in room [] Pre-surgical visit [] Trauma [] Long length of stay [] ICU visit [] Other: Relational/Emotional Strength [] Patient feels connected with others/family/visitors/staff [] Distress [] Loneliness/isolation [] Abandonment Spirituality of Patient [] Person of Sharda [] Attends Yarsani of their Sharda [] Believes in Prayer [] Reads Bible or Yazidism materials [] There are Spiritual issues to be addressed Fast Food Cook Interventions [] Prayer [] Active listening [] Non-anxious presence [] Spiritual/emotional support [] Crisis/trauma care [] Spiritual counseling [] Bereavement support [] Provided bereavement packet [] Provided Bible/devotional materials [] Provided toy/stuffed animal, coloring book to patient or family member [] Provided Communion [] Anointing/[place] [] Salvation [] Completed spiritual assessment [] Other: Impact on Illness or Injury [] Angry [] Fearful [] Anxious [] Often cries [] Exhaustion [] Unable to work [] Unable to attend samaritan [] Unable to walk/stand [] Unable to read [] Unable to drive [] Unable to eat/drink [] Unable to sleep [] Unable to be with family [] Patient intubated [] Other: Summary Time spent with patient
[2020-04-01 14:41] LABS: Vancomycin Trough 8.5 ug/mL (10-15)
[2020-04-01] MEDS: enoxaparin 40 mg/0.4 mL Syringe SUBCUT (18:08)
[2020-04-01] MEDS: oxybutynin 5 mg Tablet PO (18:08)
[2020-04-01] MEDS: trazodone 100 mg Tablet 150 MG PO (22:45)
[2020-04-02] VITALS (8 sets, daily range): BP systolic 111–144; BP diastolic 78–91; PULSE 94–105; RESP 16–19; TEMP 36.7–37.4; O2SAT 91–94
[2020-04-02] MEDS: sodium chloride 0.9% 1,000 ML 125 ML IV (01:52)
[2020-04-02] MEDS: oxybutynin 5 mg Tablet PO (04:12)
[2020-04-02] MEDS: piperacillin-tazobactam 3.375 GM in sodium chloride 0.9% (plus) 50 ML IV (05:38)
[2020-04-02 05:45] LABS: Basophils % 0.2 %; Eosinophils # 0.1 10^3/uL (0.0-0.8); Hematocrit 31.1 % (42.0-52.0); Hemoglobin 9.7 g/dL (11.7-16.6); Lymphocytes # 1.2 10^3/uL (0.8-4.8); Lymphocytes % 11.6 %; Mean Corpuscular HGB Conc 31.2 g/dL (30.0-36.0); Mean Corpuscular Hemoglobin 28.5 pg (28.0-34.0); Mean Corpuscular Volume 91.5 fL (80-94); Mean Platelet Volume 9.8 fL (7.4-10.4); Monocytes # 1.3 10^3/uL (0.2-0.9); Monocytes % 12.5 %; Neutrophils # 7.43 10^3/uL (1.8-7.7); Neutrophils % 74.3 %; Nucleated Red Blood Cells % 0 %; Platelet Count 217 10^3/cmm (130-400); Red Cell Distribution Width 13.2 % (12.1-15.1)
[2020-04-02 06:38] LABS: Anion Gap 13.8 (5-19); Blood Urea Nitrogen 10 mg/dL (8-23); Calcium 8.5 mg/dL (8.5-10.5); Carbon Dioxide 24 mmol/L (22-29); Chloride 105 mmol/L (98-107); Creatinine Clr Calc Pharmacy 151.3625; Glucose 128 mg/dL (65-115); Osmolality Calculated 289 mOsm/kg (285-295); Potassium 3.8 mmol/L (3.5-5.1); Sodium 139 mmol/L (136-145)
[2020-04-02] MEDS: venlafaxine ER (24HR) 150 mg Capsule PO (09:21)
[2020-04-02] MEDS: tamsulosin 0.4 mg Capsule PO (09:21)
[2020-04-02] MEDS: polyethylene glycol 3350 Pkt 17 gm PO (09:21)
--- NOTE | 2020-04-02 11:48 | P.DS_ITS ---
Discharge Providers Date of Admission: 03/31/20 15:34 Date of Discharge: April 02, 2020 Attending Provider at Admission: Damien Rios MD Attending Provider at Discharge: Damien Rios MD Primary Care Provider: Elaine Escalante DO Diagnoses at Discharge Discharge Diagnosis (1) Sepsis: Status: Resolved Qualifiers: Sepsis acute organ dysfunction status: unspecified Sepsis type: sepsis due to unspecified organism Qualified Code(s): A41.9 - Sepsis, unspecified organism (2) Acute retention of urine: Status: Acute (3) Urinary tract infection: Status: Resolved Qualifiers: Hematuria presence: with hematuria Urinary tract infection type: site unspecified Qualified Code(s): N39.0 - Urinary tract infection, site not specified; R31.9 - Hematuria, unspecified (4) Bladder diverticulum: Status: Chronic (5) Prostate cancer: Status: Chronic (6) Chronic insomnia: Status: Chronic (7) CHAMP (generalized anxiety disorder): Status: Chronic Reason for Visit Reason for Visit: genital area pain Hospital Course Hospital Course: 59 year old male with PMH of adenocarcinoma of the prostate s/p prostate cancer with large volume [place] 4+3 and 3+4 and PSA at approximately 10 at diagnosis.S/P radiation therapy plus hormonal manipulation.Was admitted for acute urinary retention. On further work-up he was found to be in sepsis secondary to uti. He was started on broad-spectrum antibiotics. A Garcia catheter was also placed for acute urinary retention. Dr. Randolph was on board. Upon further discussion with him, he was to be discharged with indwelling Garcia to be followed by Dr. Randolph as an outpatient. At the time of discharge he was hemodynamically stable. He has been afebrile throughout hospital stay. Blood cultures have been negative. Urine culture has grown strep viridans sensitive to ampicillin. He was discharged on Augmentin for 10-day course. He received Vanco and Zosyn while inpatient. Physical Exam Const: COMMON NORMALS: patient oriented x3 HENMT: COMMON NORMALS: normocephalic, atraumatic, hearing grossly normal bilaterally and external ears normal HEAD & SCALP: normocephalic and atraumatic EXTERNAL EAR: Yes external ears normal Eye: COMMON NORMALS: no scleral icterus GENERAL EYE: appearance normal, both eyes and all related structures Chest: COMMONS NORMALS: normal inspection of the chest and normal palpation of entire chest wall CHEST: Yes Symmetrical chest wall rise Resp: COMMON NORMALS: normal respiratory effort, No retractions, No use of accessory muscles and clear to auscultation bilaterally EFFORT & INSPECTION: Yes symmetric chest movement AUSCULTATION: clear to auscultation bilaterally Cardio: COMMON NORMALS: regular rate, regular rhythm, S1 normal heart sound present, S2 normal heart sound present, No gallops present (Cardio), No murmurs present (Cardio), No rub (Cardio) and Peripheral pulses 2+ throughout RATE: regular rate RHYTHM: regular rhythm HEART SOUNDS: S1 normal heart sound present and S2 normal heart sound present PERIPHERAL PULSES: Peripheral pulses 2+ throughout GI: COMMON NORMALS: Normal to inspection, nondistended, normoactive bowel sounds present, Soft to palpation, non-tender, No hepatosplenomegaly present and no masses AUSCULTATION: Yes normoactive bowel sounds PALPATION: Yes Soft to palpation and Yes No hepatosplenomegaly present RECTAL EXAM: Yes deferred Extremity: COMMON NORMALS: no clubbing, cyanosis or edema and no pedal edema Neuro: COMMON NORMALS: patient oriented x3 Urinary Catheter Management^: Garcia: Cath Placed During This Visit: yes Reason for Continuing Indwelling Catheter: Acute Urinary Retention or Obstruction Urinary Catheter Date of Insertion: 03/31/20 Discharge Data Data Completed and Pending: Completed Studies During Hospitalization Category Date Time Status XR chest 1V lian ble [id number] Stat Exams 03/31/20 12:07 Completed US renal BI with bladder Routine Ultrasound 04/01/20 07:00 Completed Pending at discharge Category Date Time Status Basic Metabolic P antolin AM LABS Lab 04/03/20 04:00 Ordered Blood Culture Sta t Lab 03/31/20 12:50 Results Complete Blood Co unt w/Auto AM LABS Lab 04/03/20 04:00 Ordered Urine Culture Sta t Lab 03/31/20 12:28 Results Vancomycin Trough Timed Lab 04/02/20 22:00 Ordered Labs from last 24 hours 04/02/20 04/02/20 04/01/20 04:33 04:33 13:02 WBC 10.0 RBC 3.40 L Hgb 9.7 L Hct 31.1 L MCV 91.5 D MCH 28.5 MCHC 31.2 D RDW 13.2 Plt Count 217 MPV 9.8 Neut % (Auto) 74.3 Lymph % (Auto) 11.6 [place] % (Auto) 12.5 Eos % (Auto) 1.0 Baso % (Auto) 0.2 Neut # (Auto) 7.43 Lymph # (Auto) 1.2 [place] # (Auto) 1.3 H Eos # (Auto) 0.1 Baso # (Auto) 0.0 Nucleated RBC % (a uto) 0 Nucleated RBCs # 0.0 Sodium 139 Potassium 3.8 Chloride 105 Carbon Dioxide 24 Anion Gap 13.8 BUN 10 Creatinine 0.6 L GFR Calculation 137.0 H Glucose 128 H Calculated Osmolal ity 289 Calcium 8.5 Vancomycin Trough 8.5 L Vitals: Last Vital Signs Temp 99.1 F 04/02/20 08:00 Pulse 105 H 04/02/20 11:44 Resp 18 04/02/20 11:44 BP 138/79 04/02/20 08:00 Pulse Ox 94 04/02/20 11:44 Discharge Plan Discharge Patient Disposition: Home Condition: Stable Prescriptions: New Augmentin 875-125 mg tablet 1 tab PO Q12H Qty: 14 RF: 0 Continued tamsulosin 0.4 mg capsule 0.4 mg PO BID Qty: 180 RF: 3 venlafaxine [Effexor XR] 150 mg capsule,extended release 24hr 150 mg PO DAILY Qty: 90 RF: 1 hydrocodone-acetaminophen 10-325 mg tablet 1 - 2 tab PO Q4H PRN (Reason: Pain) RF: 0 Aleve 220 mg Tablet 660 mg PO PRN RF: 0 trazodone 100 mg tablet 150 mg PO BEDTIME RF: 0 Discharge Orders: Discharge Order (Routine); Ordered 04/02/20 Ordered By: Damien Rios Referrals: Harjinder Randolph MD [Physician] - 04/17/20 8:30 am ( has been updated.) Elaine Escalante DO [Primary Care Provider] - 04/09/20 2:00 pm Discharge Diet: Usual diet Discharge Activity: Resume usual activity Patient Instructions: Amoxicillin/Clavulanate Potassium (By mouth), Garcia Catheter Care, Urinary Tract Infection in Men (GEN), Sepsis (GEN), Urinary Leg Bag (GEN) Discharge Date/Time: 04/02/20 15:42 Discharge Attestations Time Spent in Discharge Care*: greater than 30 min Specific Discharge Activities: Specific discharge activities: educating patient, educating and/or supporting family/caregiver, discussing with pcp/other providers, discussing with director case management/social workers/dc planners, documenting/other paperwork and evaluating patient/reviewing data Status at Discharge: Cognitive status at discharge: cognitively intact , Behavioral status at discharge: cooperative , Functional status at discharge: independent ambulation Overall status at discharge: patient is back to baseline Quality Metrics Clinical Quality Measures During this hospital stay, did patient experience: None Coding Level of Care Code Acute Refrigeration Manager for Chg Fwd Diagnoses Sepsis A41.9 Sepsis acute organ dysfunction status: unspecified Sepsis type: sepsis due to unspecified organism Acute retention of urine R33.8 Urinary tract infection N39.0; R31.9 Hematuria presence: with hematuria Urinary tract infection type: site unspecified Bladder diverticulum N32.3 Prostate cancer C61 Chronic insomnia F51.04 CHAMP (generalized anxiety disorder) F41.1
== END 2020-04-02 15:42 | disposition home or self-care (01) | DRG 872 ==
LOC: ER 15:59 → MEDSURG 17:01
PROVIDERS: Emergency Medicine; Admitting Provider Internal Medicine; PCP Family Medicine; Visit Provider Internal Medicine
DX: A41.9 Sepsis, unspecified organism (principal); N39.0 Urinary tract infection, site not specified; C61 Malignant neoplasm of prostate; Z92.3 Personal history of irradiation; N40.1 Benign prostatic hyperplasia with lower urinary tract symptoms; R33.8 Other retention of urine; R39.14 Feeling of incomplete bladder emptying; I95.9 Hypotension, unspecified; G89.29 Other chronic pain; F41.1 Generalized anxiety disorder; F43.10 Post-traumatic stress disorder, unspecified; Z90.49 Acquired absence of other specified parts of digestive tract; N32.3 Diverticulum of bladder; F51.04 Psychophysiologic insomnia; Z79.891 Long term (current) use of opiate analgesic
CPT/HCPCS: 12345; 36415; 51702; 71045; 76770; 76857; 80048; 80053; 80202; 81001; 83605; 83735; 84100; 84145; 85025; 85610; 87040; 87077; 87086; 87186; 93005; 96372; 96375; 99283; J1650; J2060; J2405; J2543; J3010; J3370; J7030; J7040; J7050

== ENCOUNTER 2020-09-22 14:30 | Emergency (ER) | payer MEDICARE, MEDICAID, SELFPAY ==
[2020-09-22 15:16] VITALS: BP 152/99; PULSE 111; RESP 18; TEMP 36.9; O2SAT 92; BMI 32.8
--- NOTE | 2020-09-22 15:57 | XRR_ITS ---
PROCEDURE INFORMATION: Exam: XR Chest Exam date and time: 09/22/2020 3:59 PM Age: 60 years old Clinical indication: Cough and dyspnea; Additional info: Dyspnea/cough TECHNIQUE: Imaging protocol: XR of the chest Views: 1 view. Total images: 1 COMPARISON: CR XR chest 1V portable [id number] 03/31/2020 12:33 PM FINDINGS: Lungs: Unremarkable. No consolidation. Pleural spaces: Unremarkable. No pleural effusion. No pneumothorax. Heart/Mediastinum: Unremarkable. No cardiomegaly. Bones/joints: Unremarkable. XR/XR chest 1V portable [id number] IMPRESSION: No acute findings.
--- NOTE | 2020-09-22 15:58 | ED_ITS ---
HPI - Male Genitourinary General: Chief complaint: Urogenital-Male Stated complaint: groin pain Time Seen by Provider: 09/22/20 15:53 History of Present Illness: HPI Narrative: 60-year-old male presents emergency room with difficulty breathing. When I asked him what he came here for he told me that he was septic. He does not have a fever he has difficulty with urination has had increasing frequency. Has burning and discomfort is not noticed any hematuria. He states his urethra has narrowed due to treatments he received for prostate cancer previously. Denies any flank pain denies any abdominal pain. He states he gets spasms on a regular basis, and they have been increasing in frequency. MD Complaint: dysuria Onset (ago): day(s) Duration: intermittent Location: abdomen Severity: mild Quality: aching Relieving factors: none Exacerbating factors: urination Associated symptoms: Reports dysuria and fevers/chills; Deny discharge, hematuria, nausea, rash, swelling, urinary incontinence, urinary retention, mass or vomiting Review of Systems Const: Denies: fever(s), chills, body aches, change in appetite, fatigue or malaise ENMT: Denies: throat pain, ear or mastoid pain, nasal discharge or nasal congestion Card: Denies: chest pain, edema, dyspnea on exertion or orthopnea Resp: Denies: dyspnea, productive cough or non-productive cough GI: Denies: nausea or vomiting : Reports: dysuria; Denies: urinary incontinence or hematuria Skin/Breast: Denies: rash or pruritus PFSH ED PFSH: Medical History Acute retention of urine Bladder diverticulum BPH (benign prostatic hyperplasia) Chronic insomnia Chronic pain Erectile dysfunction CHAMP (generalized anxiety disorder) Incomplete bladder emptying Lower urinary tract symptoms Prostate cancer PTSD (post-traumatic stress disorder) Sepsis Urinary tract infection Surgical History History of back surgery History of bladder surgery History of elbow surgery History of prostate biopsy Status post colon resection SIGMOID RESECTION Status post decompression of ulnar nerve Family History Father , FATHER AT AGE 48-[place] No problems noted. Mother , AT AGE 80-[place] No problems noted. Social History Smoking and tobacco status: never smoked Alcohol intake: never Marital status: Current occupational status: disabled History of recent travel: No Current gender identity: Male Physical Exam Const: COMMON NORMALS: no acute distress GENERAL APPEARANCE: cooperative and comfortable ORIENTATION/CONSCIOUSNESS: Yes awake, Yes oriented to person, Yes oriented to place and Yes oriented to time HENMT: COMMON NORMALS: normocephalic, atraumatic and hearing grossly normal bilaterally HEAD & SCALP: normocephalic and atraumatic Neck/C-Spine: COMMON NORMALS: no JVD Lymph: LYMPHATIC: no lymphadenopathy noted and no lymphedema noted Resp: COMMON NORMALS: normal respiratory effort, No retractions, No use of accessory muscles and clear to auscultation bilaterally AUSCULTATION: clear to auscultation bilaterally Cardio: COMMON NORMALS: no JVD, regular rate, regular rhythm and No murmurs present (Cardio) RATE: regular rate RHYTHM: regular rhythm GI: COMMON NORMALS: Soft to palpation and No hepatosplenomegaly present AUSCULTATION: Yes normoactive bowel sounds PALPATION: Yes Soft to palpation, No Tenderness to palpation present (GI), No Guarding due to palpation present (GI) and Yes No hepatosplenomegaly present Extremity: COMMON NORMALS: normal to inspection, capillary refill normal, no clubbing, cyanosis or edema, no calf tenderness and no pedal edema Neuro: SENSORIUM/ORIENTATION: Yes oriented to person, Yes oriented to place and Yes oriented to time Skin: COMMON NORMALS: no rashes or lesions noted GENERAL SKIN EXAM: no rashes or lesions noted Course Vital Signs: Vital signs: Vital Signs Temperature 98.4 F 09/22/20 15:16 Pulse Rate 110 H 09/22/20 18:37 Respiratory Rate 16 09/22/20 18:37 Blood Pressure 137/99 09/22/20 18:37 Pulse Oximetry 97 09/22/20 18:37 MDM - Male MDM Narrative: Medical decision making narrative: White count normal UA shows cystitis. Started on Cipro and Pyridium. Patient appears to have overflow incontinence he has urinary retention on bladder scan Garcia leg bag applied follow-up with Dr. Randolph Lab Data: Labs: Lab Results 09/22/20 09/22/20 09/22/20 Range/Units 15:33 16:10 16:10 WBC 8.8 (4.0-10.0) 10^3/ uL RBC 4.79 (4.1-5.3) 10^6/u L Hgb 13.3 (11.7-16.6) g/dL Hct 43.0 (42.0-52.0) % MCV 89.8 (80-94) fL MCH 27.8 L (28.0-34.0) pg MCHC 30.9 (30.0-36.0) g/dL RDW 13.6 (12.1-15.1) % Plt Count 363 (130-400) 10^3/c mm MPV 9.0 (7.4-10.4) fL Neut % (Auto) 62.7 % Lymph % (Auto) 27.0 % [place] % (Auto) 8.3 % Eos % (Auto) 1.4 % Baso % (Auto) 0.3 % Neut # (Auto) 5.48 (1.8-7.7) 10^3/u L Lymph # (Auto) 2.4 (0.8-4.8) 10^3/u L [place] # (Auto) 0.7 (0.2-0.9) 10^3/u L Eos # (Auto) 0.1 (0.0-0.8) 10^3/u L Baso # (Auto) 0.0 (0.0-0.1) 10^3/u L Nucleated RBC % (a uto) 0 % Nucleated RBCs # 0.0 /100WBC Sodium 139 (136-145) mmol/L Potassium 4.4 (3.5-5.1) mmol/L Chloride 105 (98-107) mmol/L Carbon Dioxide 24 (22-29) mmol/L Anion Gap 14.4 (5-19) BUN 13 (8-23) mg/dL Creatinine 0.9 (0.7-1.2) mg/dL GFR Calculation 85.5 L (90-130) mL/min Glucose 107 (65-115) mg/dL Calculated Osmolal ity 289 (285-295) mOsm/k g Lactic Acid (0.5-2.2) mmol/L Calcium 8.9 (8.5-10.5) mg/dL Total Bilirubin 0.2 (0.15-1.2) mg/dL AST 25 (0-40) U/L ALT 34 (0-41) U/L Alkaline Phosphata se 99 (40-130) IU/L Total Protein 7.6 (6.6-8.7) g/dL Albumin 4.2 (3.5-5.2) g/dL Globulin 3.4 (1.3-4.6) g/dL Urine Color [place] (Yellow) Urine Appearance Sl hazy (CLEAR) Urine pH 7 (5-7) Ur Specific Gravit y 1.015 (1.005-1.030) Urine Protein 2+ H (Negative) Urine Glucose (UA) Norm (Normal) Urine Ketones Negative (Negative) Urine Blood 3+ H (Negative) Urine Nitrate Positive H (Negative) Urine Bilirubin 1+ H (Negative) Urine Urobilinogen 4 H (Negative) mg/dL Ur Leukocyte Adriana ase 2+ H (Negative) Urine RBC 25-40 H (0-2) /hpf Urine WBC 80-100 H (0-5) /hpf Ur Squamous Epith Cells None (0-5) /hpf Amorphous Sediment Not Reportable Urine Bacteria 2+ H (NONE) /hpf 09/22/20 Range/Units 16:10 WBC (4.0-10.0) 10^3/ uL RBC (4.1-5.3) 10^6/u L Hgb (11.7-16.6) g/dL Hct (42.0-52.0) % MCV (80-94) fL MCH (28.0-34.0) pg MCHC (30.0-36.0) g/dL RDW (12.1-15.1) % Plt Count (130-400) 10^3/c mm MPV (7.4-10.4) fL Neut % (Auto) % Lymph % (Auto) % [place] % (Auto) % Eos % (Auto) % Baso % (Auto) % Neut # (Auto) (1.8-7.7) 10^3/u L Lymph # (Auto) (0.8-4.8) 10^3/u L [place] # (Auto) (0.2-0.9) 10^3/u L Eos # (Auto) (0.0-0.8) 10^3/u L Baso # (Auto) (0.0-0.1) 10^3/u L Nucleated RBC % (a uto) % Nucleated RBCs # /100WBC Sodium (136-145) mmol/L Potassium (3.5-5.1) mmol/L Chloride (98-107) mmol/L Carbon Dioxide (22-29) mmol/L Anion Gap (5-19) BUN (8-23) mg/dL Creatinine (0.7-1.2) mg/dL GFR Calculation (90-130) mL/min Glucose (65-115) mg/dL Calculated Osmolal ity (285-295) mOsm/k g Lactic Acid 1.6 (0.5-2.2) mmol/L Calcium (8.5-10.5) mg/dL Total Bilirubin (0.15-1.2) mg/dL AST (0-40) U/L ALT (0-41) U/L Alkaline Phosphata se (40-130) IU/L Total Protein (6.6-8.7) g/dL Albumin (3.5-5.2) g/dL Globulin (1.3-4.6) g/dL Urine Color (Yellow) Urine Appearance (CLEAR) Urine pH (5-7) Ur Specific Gravit y (1.005-1.030) Urine Protein (Negative) Urine Glucose (UA) (Normal) Urine Ketones (Negative) Urine Blood (Negative) Urine Nitrate (Negative) Urine Bilirubin (Negative) Urine Urobilinogen (Negative) mg/dL Ur Leukocyte Adriana ase (Negative) Urine RBC (0-2) /hpf Urine WBC (0-5) /hpf Ur Squamous Epith Cells (0-5) /hpf Amorphous Sediment Urine Bacteria (NONE) /hpf Discharge Plan Discharge Patient Disposition: Home Clinical Impression: Urinary tract infection, Acute retention of urine Condition: Stable Prescriptions: New ciprofloxacin HCl 500 mg tablet 500 mg PO BID Qty: 14 RF: 0 Pyridium 200 mg tablet 200 mg PO TID Qty: 6 RF: 0 No Action naproxen sodium [Aleve] 220 mg Tablet 660 mg PO Q8H PRN (Reason: Pain) RF: 0 tamsulosin 0.4 mg capsule 0.4 mg PO BID RF: 0 trazodone 100 mg tablet 100 - 150 mg PO BEDTIME RF: 0 Discharge Orders: Discharge ED (Routine); Ordered 09/22/20 Ordered By: Jaspal Edmond Referrals: Elaine Escalante DO [Primary Care Provider] - Discharge Diet: Usual diet Discharge Activity: Increase activity as tolerated Patient Instructions: Opioid Safety Activity Restrictions/Additional Instructions: Follow-up with urology or your primary care doctor within a week. Coding Level of Care Code ED Glass Grinder for Shira Fwd Exam Comprehensive
[2020-09-22 16:18] LABS: Urine Appearance SL Hazy (CLEAR); Urine Color Orange (Yellow)
[2020-09-22 16:19] LABS: Add Urine Microscopic? YES; Bilirubin Urine 1+ (Negative); Blood Urine 3+ (Negative); Glucose Urine UA Norm (Normal); Ketones Urine Negative (Negative); Leukocyte Esterase Urine 2+ (Negative); Nitrate Urine Positive (Negative); Protein Urine 2+ (Negative); Specific Gravity, Urine 1.015 (1.005-1.030); Urobilinogen Urine 4 mg/dL (Negative); pH Urine 7 (5-7)
[2020-09-22 16:20] LABS: RBC Urine 25-40 /hpf (0-2)
[2020-09-22 16:21] LABS: Add Urine Culture? Yes; Bacteria Urine 2+ /hpf; WBC Urine 80-100 /hpf (0-5)
[2020-09-22 16:30] LABS: Basophils % 0.3 %; Eosinophils # 0.1 10^3/uL (0.0-0.8); Eosinophils % 1.4 %; Hemoglobin 13.3 g/dL (11.7-16.6); Lymphocytes # 2.4 10^3/uL (0.8-4.8); Mean Corpuscular HGB Conc 30.9 g/dL (30.0-36.0); Mean Corpuscular Hemoglobin 27.8 pg (28.0-34.0); Mean Corpuscular Volume 89.8 fL (80-94); Monocytes # 0.7 10^3/uL (0.2-0.9); Monocytes % 8.3 %; Neutrophils # 5.48 10^3/uL (1.8-7.7); Neutrophils % 62.7 %; Nucleated Red Blood Cells % 0 %; Platelet Count 363 10^3/cmm (130-400); Red Blood Count 4.79 10^6/uL (4.1-5.3); Red Cell Distribution Width 13.6 % (12.1-15.1); White Blood Count 8.8 10^3/uL (4.0-10.0)
[2020-09-22 16:51] LABS: Lactic Sepsis W/Reflex 1.6 mmol/L (0.5-2.2)
[2020-09-22 16:59] LABS: Alanine Aminotransferase 34 U/L (0-41); Albumin Level 4.2 g/dL (3.5-5.2); Alkaline Phosphatase 99 IU/L (40-130); Anion Gap 14.4 (5-19); Aspartate Amino Transferase 25 U/L (0-40); Blood Urea Nitrogen 13 mg/dL (8-23); Calcium 8.9 mg/dL (8.5-10.5); Carbon Dioxide 24 mmol/L (22-29); Chloride 105 mmol/L (98-107); Creatinine Clr Calc Pharmacy 93.6019; Globulin 3.4 g/dL (1.3-4.6); Glomerular Filtration Rate 85.5 mL/min (90-130); Glucose 107 mg/dL (65-115); Osmolality Calculated 289 mOsm/kg (285-295); Potassium 4.4 mmol/L (3.5-5.1); Sodium 139 mmol/L (136-145); Total Bilirubin 0.2 mg/dL (0.15-1.2); Total Protein 7.6 g/dL (6.6-8.7)
--- NOTE | 2020-09-22 17:13 | PC.NURSE ---
Bladder scan completed noting 938 ml left in bladder.
[2020-09-22] MEDS: cefTRIAXone 1,000 MG in lidocaine 1% 2.1 ML 1 MG IM (17:19)
[2020-09-22] MEDS: HYDROcodone-acetaminophen 5-325 mg Tablet 1 TAB PO (17:19)
[2020-09-22] MEDS: phenazopyridine 100 mg Tablet 200 MG PO (17:19)
[2020-09-22 17:40] VITALS: RESP 16
[2020-09-22] MEDS: morphine 4 mg/mL SDV 1 mL IVP (17:40)
[2020-09-22] MEDS: lidocaine 2% Urojet 20 mL TOPICAL (18:32)
[2020-09-22 18:35] VITALS: BP 137/99; PULSE 110; RESP 16; O2SAT 97
[2020-09-22 18:37] VITALS: BP 137/99; PULSE 110; RESP 16; O2SAT 97
--- NOTE | 2020-09-24 13:02 | DCPLANNER ---
natural sciences manager had message to schedule a follow up appointment for patient with Dr. Randolph. natural sciences manager called the office of Dr. Randolph, spoke with Venessa, gave clinic patients information. natural sciences manager was told that patients information would be printed and reviewed. Clinic will call patient with appointment information.
--- NOTE | 2020-09-29 08:11 | DCPLANNER ---
Patient had a follow up appointment scheduled for 09.28.[address] Randolph - patient did attend appointment.
== END 2020-09-22 18:56 | disposition home or self-care (01) ==
PROVIDERS: Family Medicine; Emergency Provider Family Medicine; PCP Family Medicine
DX: N39.0 Urinary tract infection, site not specified (principal); R33.9 Retention of urine, unspecified; Z85.46 Personal history of malignant neoplasm of prostate
CPT/HCPCS: 51798; 71045; 80053; 81001; 83605; 85025; 87040; 87086; 96372; 96374; 99284; 99291; J0696; J2270

== ENCOUNTER → 2020-09-28 09:05 | Outpatient (BNVA) | payer MEDICARE, MEDICAID, SELFPAY | PROVIDERS: PCP Family Medicine; Visit Provider Urology | DX: N21.0 Calculus in bladder (principal); Z20.822 Contact with and (suspected) exposure to COVID-19 | CPT/HCPCS: 87635 ==

== ENCOUNTER 2020-10-01 13:19 | Day surgery (SDC) | payer MEDICARE, MEDICAID, SELFPAY ==
[2020-09-30 14:13] VITALS: BMI 31.9
[2020-10-01 13:45] VITALS: BP 145/96; PULSE 112; RESP 18; TEMP 36.7; O2SAT 92
[2020-10-01] MEDS: midazolam 1 mg/mL INJ 2 mL 2 MG IVP (14:50)
--- NOTE | 2020-10-01 14:51 | ANES.PREANE2 ---
Pre-Anesthetic Assessment Pre-Anesthetic Assessment: Height/Weight: Height 1.73 m Weight 95.254 kg Temp Pulse Resp BP Pulse Ox 98.1 F 112 H 18 145/96 92 10/01/20 13:45 10/01/20 13:45 10/01/20 13:45 10/01/20 13:45 10/01/20 13:45 Preop Diagnosis: Cystolithiasis Proposed Procedure: Operation Date: 10/01/20 14:45 Proposed Procedures p Cystolitholapaxy 03743 N21(Not Applicable) - Harjinder Randolph MD Familial anesthetic complications: none Was Beta Navarro taken within 24 hours: N/A Was Clonidine taken within 24 hours: N/A Last intake: Intake Last Liquid Date 10/01/20 Last Liquid Time 09:00 Last Solid Date 09/30/20 Last Solid Time 16:00 Social: Social History: No alcohol and No tobacco Exam: Pre-Anes Outpt Exam: alert, oriented x 3, clear to auscultation bilaterally and regular rate & rhythm Airway: Cervical ROM: WNL MP: 4 Dentition: Full CV/HEM: CV/HEM: Arrythmia (was told during stress test your heart beats to a different drum, but it's ok - ? PVCs, no symptoms, no palpitations) Anesthetic Plan: ASA status: 2 Anesthesia: General Risk of > 500 ml blood loss (7ml/kg in children): No PFSH Anesthesia PFSH: Medical History Acute retention of urine Bladder diverticulum Bladder stone BPH (benign prostatic hyperplasia) Chronic insomnia Chronic pain Erectile dysfunction CHAMP (generalized anxiety disorder) Incomplete bladder emptying Lower urinary tract symptoms Prostate cancer PTSD (post-traumatic stress disorder) Sepsis Urinary tract infection Surgical History History of back surgery History of bladder surgery History of elbow surgery History of prostate biopsy Status post colon resection SIGMOID RESECTION Status post decompression of ulnar nerve Family History Father , FATHER AT AGE 48-[place] No problems noted. Mother , AT AGE 80-[place] No problems noted. Social History Smoking and tobacco status: never smoked Alcohol intake: never Marital status: Current occupational status: disabled History of recent travel: No Current gender identity: Male Data Anesthesia Cardiac Studies: No Data to Display
[2020-10-01] MEDS: sodium chloride 0.9% 1,000 ML 30 ML IV (15:30)
--- NOTE | 2020-10-01 15:46 | W.PM.OPSUD ---
Surgery/Procedure H&P Update DATE OF PROCEDURE: October 01, 2020 DATE H&P PERFORMED: 09/28/20 H&P UPDATE INFORMATION: I have reviewed H&P completed within last 30 days, I have examined patient prior to procedure, No changes to prior documentation and H&P is in [facility] EMR on date indicated PREOP DIAGNOSIS: Cystolithiasis PLANNED PROCEDURE: Operation Date: 10/01/20 14:45 Proposed Procedures p Cystolitholapaxy 66367 N21(Not Applicable) - Harjinder Randolph MD
--- NOTE | 2020-10-01 15:48 | P.OP_ITS ---
Operative Report Date of procedure: October 01, 2020 Pre-op Diagnosis: Cystolithiasis Post-op diagnosis: same Procedure Done: Cystolitholapaxy >2.5 cm Pathology: Stone fragments Surgeon: Agustín Anesthesia: General Estimated blood loss: Less than 10 cc Urine output: Not measured Complications: None Findings: Bladder stone completely fragmented and fragments removed. Condition: stable Disposition: PACU Brief History: Mr. Montez is a very pleasant 60-year-old white male with a history of prostate cancer status post radiation therapy. Developed a membranous urethral stricture requiring stricture patency maintenance. Complaining of difficulty getting catheter in and increasing lower urinary tract symptoms and a clinic cystoscopy demonstrated a bladder stone measuring about 3 cm. He had had a catheter in his bladder placed in the emergency department because of difficulty getting a catheter in via self-catheterization. That catheter was removed at the time of diagnosis of cystolithiasis. He is back now for cystolitholapaxy. Procedure: After routine preoperative evaluation examination and obtaining of informed consent he was taken to the operating suite on 10/01/2020 where general anesthesia was administered without difficulty after appropriate timeout was performed, SCDs confirmed to be functioning, preoperative antibiotics administered, beta- foreign protocol confirmed. Prepped and draped in usual sterile fashion in dorsolithotomy position paying careful attention to avoiding pressure points. A 21 Cymraes cystoscope could not be advanced beyond the mid urethra where there was a large caliber but tight stricture. A 17 Cymraes scope though went without difficulty under direct vision into the bladder. The stone was no longer in the bladder but in the large wide mouth bladder diverticulum and impacted was a second stone there. The stone was then fragment with a 365 ?m thulium superpulse laser fiber into small fragments. The additi onal stone was also fragmented. The fragments were removed without difficulty with an Meeik evacuator and direct flushing. It was decided to not leave the catheter in For further passive dilation Tolerated the procedure well without complications and was awakened in the operating room and returned to the recovery room in stable condition. PLANS: 1. Anticipate discharge from outpatient surgery today 2. Maintain Garcia catheter until 10/05/2020 where he can remove the catheter at home.
[2020-10-01] MEDS: levofloxacin-dextrose 5 % 500 MG/100 ML PREMIX 100 MG IV (15:57)
[2020-10-01 16:57] VITALS: BP 144/84; PULSE 107; RESP 16; TEMP 36.2; O2SAT 94
[2020-10-01 17:00] VITALS: BP 122/88; PULSE 101; RESP 20; O2SAT 95
[2020-10-01 17:05] VITALS: BP 143/87; PULSE 98; RESP 14; TEMP 36.6; O2SAT 94
--- NOTE | 2020-10-01 17:08 | P.PCN_ITS ---
PACU note PACU note: VSS, Good respiratory effort, report to COOK CHILI Post-Anesthesia Exam: awake
--- NOTE | 2020-10-01 17:08 | PM.PACU ---
PACU note PACU note: VSS, Good respiratory effort, report to OVEN TENDER Post-Anesthesia Exam: awake
[2020-10-01 18:18] VITALS: BP 138/90; PULSE 94; RESP 18; TEMP 36.7; O2SAT 94
[2020-10-01 18:20] VITALS: BP 157/97; PULSE 95; RESP 18; O2SAT 94
[2020-10-06 22:47] LABS: Stone Source BLADDER STONE
== END 2020-10-01 18:18 | disposition home or self-care (01) ==
PROVIDERS: PCP Family Medicine; Visit Provider Urology
PROC: 0TCB8ZZ Extirpation of Matter from Bladder, Via Natural or Artificial Opening Endoscopic (ICD-10-PCS; CPT 52318; principal; 2020-10-01 14:45)
DX: N21.0 Calculus in bladder (principal); Z85.46 Personal history of malignant neoplasm of prostate
CPT/HCPCS: 52318; 82365; 88300; 96365; 96374; J0330; J1956; J2250; J2405; J2704; J2710; J3010; J3490; J7030

== ENCOUNTER → 2020-10-23 09:16 | Outpatient (BNVA) | payer MEDICARE, MEDICAID, SELFPAY | PROVIDERS: PCP Family Medicine; Visit Provider Urology | DX: R33.8 Other retention of urine (principal); N21.0 Calculus in bladder; N99.112 Postprocedural membranous urethral stricture, male; C61 Malignant neoplasm of prostate; N32.3 Diverticulum of bladder | CPT/HCPCS: 81003 ==

== ENCOUNTER → 2021-01-04 08:33 | Outpatient (BNVA) | payer MEDICARE, MEDICAID, SELFPAY | PROVIDERS: PCP Family Medicine; Visit Provider Urology | DX: C61 Malignant neoplasm of prostate (principal); N99.112 Postprocedural membranous urethral stricture, male; N21.0 Calculus in bladder | CPT/HCPCS: 84153 ==

== ENCOUNTER → 2021-04-06 13:06 | Outpatient (BNVA) | payer MEDICARE, MEDICAID, SELFPAY | PROVIDERS: PCP Family Medicine; Visit Provider Urology | DX: R30.0 Dysuria (principal) | CPT/HCPCS: 81003; 87086 ==

== ENCOUNTER 2021-04-19 13:24 | Outpatient (CLI) | payer MEDICARE, MEDICAID, SELFPAY ==
--- NOTE | 2021-04-19 13:31 | XR_ITS ---
WS: [id number] Exam: XR KUB [id number] Date/Time of Exam: 04/19/2021 1:32 PM Reason For Exam: stones No bowel obstruction or free air. 3 mm calcification superimposes the lower pole the left kidney and may represent a renal calculus. No sign of organ enlargement. Partial fusion of the SI joints. Region al bony elements are otherwise unremarkable. XR/XR KUB [id number] IMPRESSION: 1. 3 mm calcification superimposing the left kidney most likely a renal stone. 2. No acute abdominal process.
== END 2021-04-19 13:25 | disposition home or self-care (01) ==
LOC: RAD 13:30
PROVIDERS: PCP Family Medicine; Visit Provider Nurse Practitioner Family
DX: N21.0 Calculus in bladder (principal)
CPT/HCPCS: 74018; 81003

== ENCOUNTER → 2021-04-20 16:42 | Outpatient (BNVA) | payer MEDICARE, MEDICAID, SELFPAY | PROVIDERS: PCP Family Medicine; Visit Provider Urology | DX: R33.8 Other retention of urine (principal); N21.0 Calculus in bladder | CPT/HCPCS: 82365; 88300 ==

== ENCOUNTER → 2021-06-02 16:48 | Outpatient (BNVA) | payer MEDICARE, MEDICAID, SELFPAY | PROVIDERS: PCP Family Medicine; Visit Provider Urology | DX: R30.0 Dysuria (principal); N30.80 Other cystitis without hematuria; N20.0 Calculus of kidney | CPT/HCPCS: 81003; 87077; 87086; 87184 ==

== ENCOUNTER 2021-07-08 10:31 | Outpatient (CLI) | payer MEDICARE, MEDICAID, SELFPAY ==
--- NOTE | 2021-07-08 10:00 | XR_ITS ---
WS: [id number] XR KUB [id number] REASON FOR EXAM: RENAL STONE FINDINGS: No right intrarenal calculi identified. Left lower pole intrarenal calculus unchanged compared to 04/19/2021. No ureteral or bladder calculi identified. No other significant abdominal or pelvic abnormality. XR/XR KUB [id number] IMPRESSION: Unchanged examination with left lower pole intrarenal calculus.
== END 2021-07-08 10:32 | disposition home or self-care (01) ==
LOC: RAD 10:37
PROVIDERS: PCP Family Medicine; Visit Provider Urology
DX: N20.0 Calculus of kidney (principal)
CPT/HCPCS: 74018; 81003; 84153

== ENCOUNTER → 2021-09-06 09:47 | Outpatient (BNVA) | payer OTHER, SELFPAY | PROVIDERS: PCP Family Medicine; Visit Provider Nurse Practitioner Family | DX: R30.0 Dysuria (principal) | CPT/HCPCS: 81003; 87086; 87106 ==

== ENCOUNTER → 2021-10-04 15:11 | Outpatient (BNVA) | payer OTHER, SELFPAY | PROVIDERS: PCP Family Medicine; Visit Provider Urology | DX: N99.112 Postprocedural membranous urethral stricture, male (principal) | CPT/HCPCS: 81003 ==

== ENCOUNTER → 2021-10-27 13:34 | Outpatient (BNVA) | payer MEDICARE, SELFPAY | PROVIDERS: Visit Provider Nurse Practitioner Family | DX: N99.112 Postprocedural membranous urethral stricture, male (principal); C61 Malignant neoplasm of prostate | CPT/HCPCS: 51702; 99213 ==

== ENCOUNTER → 2021-11-08 12:39 | Outpatient (BNVA) | payer MEDICARE, SELFPAY | PROVIDERS: Visit Provider Urology | DX: N99.112 Postprocedural membranous urethral stricture, male (principal); C61 Malignant neoplasm of prostate | CPT/HCPCS: 52000 ==

== ENCOUNTER → 2021-11-19 09:23 | Outpatient (BNVA) | payer MEDICARE, SELFPAY | PROVIDERS: Visit Provider Nurse Practitioner Family | DX: N99.112 Postprocedural membranous urethral stricture, male (principal); C61 Malignant neoplasm of prostate | CPT/HCPCS: 99213 ==

== ENCOUNTER → 2021-11-23 13:26 | Outpatient (BNVA) | payer MEDICARE, SELFPAY | PROVIDERS: Visit Provider Urology | DX: N99.112 Postprocedural membranous urethral stricture, male (principal); R30.0 Dysuria; R33.8 Other retention of urine | CPT/HCPCS: 52281; 99213 ==

== ENCOUNTER → 2021-11-30 15:45 | Outpatient (BNVA) | payer MEDICARE, MEDICAID, SELFPAY | PROVIDERS: Visit Provider Urology | DX: C61 Malignant neoplasm of prostate (principal); N99.112 Postprocedural membranous urethral stricture, male | CPT/HCPCS: 81003; 87077; 87086; 87186; 99213 ==

== ENCOUNTER → 2022-02-04 08:10 | Outpatient (BNVA) | payer MEDICARE, MEDICAID, SELFPAY | PROVIDERS: Visit Provider Urology | DX: N99.112 Postprocedural membranous urethral stricture, male (principal); C61 Malignant neoplasm of prostate | CPT/HCPCS: 99213 ==

== ENCOUNTER → 2022-04-08 07:56 | Outpatient (BNVA) | payer MEDICARE, MEDICAID, SELFPAY | PROVIDERS: Visit Provider Urology | DX: N99.112 Postprocedural membranous urethral stricture, male (principal); R30.0 Dysuria; C61 Malignant neoplasm of prostate | CPT/HCPCS: 99214 ==

== ENCOUNTER → 2022-05-30 15:53 | Outpatient (BNVA) | payer MEDICARE, MEDICAID, SELFPAY | PROVIDERS: PCP Family Medicine; Visit Provider Family Medicine | DX: Z12.11 Encounter for screening for malignant neoplasm of colon (principal); R30.0 Dysuria; F41.1 Generalized anxiety disorder; C61 Malignant neoplasm of prostate; Z13.220 Encounter for screening for lipoid disorders; Z13.6 Encounter for screening for cardiovascular disorders | CPT/HCPCS: 80053; 80061; 84153; 84443; 85025; 86803; 87806 ==

== ENCOUNTER → 2022-06-09 11:30 | Outpatient (BNVA) | payer MEDICARE, MEDICAID, SELFPAY | PROVIDERS: PCP Family Medicine; Visit Provider Family Medicine | DX: G89.18 Other acute postprocedural pain (principal); C44.91 Basal cell carcinoma of skin, unspecified; W57.XXXA Bitten or stung by nonvenomous insect and other nonvenomous arthropods, initial encounter | CPT/HCPCS: 88304 ==

== ENCOUNTER → 2022-07-19 10:07 | Outpatient (BNVA) | payer MEDICARE, MEDICAID, SELFPAY | PROVIDERS: PCP Family Medicine; Visit Provider Urology | DX: N99.112 Postprocedural membranous urethral stricture, male (principal); C61 Malignant neoplasm of prostate | CPT/HCPCS: 81003; 99214 ==

== ENCOUNTER → 2022-11-01 10:08 | Outpatient (BNVA) | payer MEDICARE, MEDICAID, SELFPAY | PROVIDERS: PCP Family Medicine; Visit Provider Urology | DX: N99.112 Postprocedural membranous urethral stricture, male (principal); C61 Malignant neoplasm of prostate | CPT/HCPCS: 51798; 81003; 99213 ==

== ENCOUNTER 2022-12-11 16:36 | Outpatient (CLI) | payer MEDICARE, MEDICAID, SELFPAY ==
[2022-12-11 17:35] LABS: Prostate Specific AG Urology 0.25 ng/mL (0-4)
== END 2022-12-11 16:37 | disposition home or self-care (01) ==
PROVIDERS: PCP Family Medicine; Visit Provider Urology
DX: R97.20 Elevated prostate specific antigen [PSA] (principal)
CPT/HCPCS: 36415; 84153

== ENCOUNTER → 2022-12-14 09:15 | Outpatient (BNVA) | payer MEDICARE, MEDICAID, SELFPAY | PROVIDERS: PCP Family Medicine; Visit Provider Urology | DX: N99.112 Postprocedural membranous urethral stricture, male (principal); R97.20 Elevated prostate specific antigen [PSA]; C61 Malignant neoplasm of prostate | CPT/HCPCS: 99213 ==

== ENCOUNTER → 2023-04-04 09:43 | Outpatient (BNVA) | payer MEDICARE, MEDICAID, SELFPAY | PROVIDERS: PCP Family Medicine; Visit Provider Family Medicine | DX: R07.9 Chest pain, unspecified (principal); M79.601 Pain in right arm; M79.602 Pain in left arm; F41.1 Generalized anxiety disorder; E83.42 Hypomagnesemia | CPT/HCPCS: 80053; 80061; 83735; 83880; 84443; 84484; 85025; 85610 ==

== ENCOUNTER 2023-04-06 12:50 | Emergency (ER) | payer MEDICARE, MEDICAID, SELFPAY ==
[2023-04-06 12:54] VITALS: BP 126/67; PULSE 84; RESP 16; TEMP 36.7; O2SAT 92; BMI 29.6
[2023-04-06 14:01] VITALS: BP 158/95; PULSE 83; RESP 18; O2SAT 98
[2023-04-06 14:08] LABS: Basophils % 0.1 %; Eosinophils % 0.1 %; Hematocrit 45.6 % (37-53); Lymphocytes # 0.9 10^3/uL (0.8-4.8); Lymphocytes % 6.3 %; Mean Corpuscular HGB Conc 30.9 g/dL (30-55); Mean Corpuscular Hemoglobin 28.1 pg (27-33); Monocytes # 0.5 10^3/uL (0.2-0.9); Monocytes % 3.6 %; Neutrophils # 12.83 10^3/uL (1.8-7.7); Neutrophils % 89.6 %; Nucleated Red Blood Cells % 0 %; Platelet Count 288 10^3/cmm (157-399); Red Blood Count 5.01 10^6/uL (3.85-5.65); Red Cell Distribution Width 12.8 % (12.1-15.1); White Blood Count 14.31 10^3/uL (3.29-11.43)
--- NOTE | 2023-04-06 14:21 | CT_ITS ---
WS: [id number] CT ABDOMEN AND PELVIS WITH CONTRAST HISTORY: Abdominal pain, LEFT lower quadrant. TECHNIQUE: Imaging performed of the abdomen and pelvis with IV contrast. Single phase imaging of the abdomen. Coronal and sagittal reformats are submitted. All CT scans at [facility] use at [address] one of these dose optimization techniques: automated exposure control; mA and/or kV adjustment per patient size (includes targeted exams where dose is matched to clinical indication); or iterative re construction. IV CONTRAST: Omnipaque 350; 100 mL IV. Oral contrast: No DLP: 855.85 mGy.cm COMPARISON: 02/15/2019 Lower thorax: Lung bases are clear. Heart is normal size. Small hiatal hernia. Liver/biliary system: Normal size with no intrahepatic dilatation. Gallbladder: Normal. No gallstones or wall thickening. No pericholecystic fluid. Pancreas: Normal size pancreas and pancreatic duct. No adjacent inflammation. Spleen: Normal size spleen. No mass or infarct. Adrenal glands: Normal. Right kidney: Normal size kidney. No obstruction. Too small to characterize cortical hypodensities. L ower pole cyst 11 mm. Left kidney: Mild enlargement of the kidney. There is perinephric stranding and delayed enhancement. Mild dilatation of the renal pelvis and the calyces. Proximal ureter is dilated secondary to a 5.9 mm calcification just distal to the UPJ. LEFT renal cyst. Aorta: Mild atherosclerosis with no aneurysm. Lymphadenopathy: None. Free fluid: None. GI tract: Normal stomach. No small bowel obstruction. Moderate constipation and diffuse diverticulosi s without acute diverticulitis. Surgical anastomosis is noted at the distal sigmoid. Abdominal wall: Unremarkable abdominal wall. No hernia. Pelvis: No free fluid or adenopathy within the pelvis. Well-distended urinary bladder. There is a lar ge diverticulum with a narrow neck extending posterior and LEFT lateral. 5 mm calcification in the de pendent portion of the urinary bladder. 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 No inte rval change since 02/15/2019. IMPRESSION: 1. Moderate LEFT hydronephrosis and hydroureter secondary to a 5.9 mm calcification just distal to t he UPJ. 2. LEFT perinephric stranding with delayed excretion from the kidney. Correlate also for possible UT I. 3. Urinary bladder calcification 5 mm. 4. Large posterior LEFT urinary bladder diverticulum. 5. Mild diffuse constipation and pancolonic diverticulosis. No evidence for acute diverticulitis.
[2023-04-06 14:31] LABS: Alanine Aminotransferase 63 U/L (0-41); Albumin Level 4.5 g/dL (3.5-5.2); Alkaline Phosphatase 69 U/L (40-130); Blood Urea Nitrogen 23 mg/dL (8-23); Calcium 8.9 mg/dL (8.5-10.5); Carbon Dioxide 24 mmol/L (22-29); Chloride 102 mmol/L (98-107); Globulin 2.7 g/dL (1.3-4.6); Glomerular Filtration Rate 75.2 mL/min (90-130); Glucose 119 mg/dL (65-115); Lipase 33 U/L (13-60); Osmolality Calculated 289 mOsm/kg (285-295); Sodium 137 mmol/L (136-145); Total Bilirubin 0.5 mg/dL (0.15-1.2); Total Protein 7.2 g/dL (6.6-8.7)
[2023-04-06 14:33] LABS: Anion Gap 14.9 (5-19); Aspartate Amino Transferase 75 U/L (0-40); Potassium 3.9 mmol/L (3.5-5.1)
[2023-04-06] MEDS: morphine 4 mg/mL SDV 1 mL IVP (14:37)
[2023-04-06] MEDS: ondansetron 2 mg/ML SDV 2 mL 4 MG IVP (14:37)
--- NOTE | 2023-04-06 14:44 | ED_ITS ---
HPI - Abdominal Pain General: Chief Complaint: Abdominal Pain Stated Complaint: low abd pain Time Seen by Provider: 04/06/23 13:34 History of Present Illness: 62-year-old complex medical history including prostate cancer, GERD, PTSD, anxiety, UTI and chronic pain presents emergency room today with complaints of constipation, left lower quadrant pain and left flank pain that started this morning. Patient described the pain as sharp sensation with severity of 7 out of 10. Patient has any dysuria, hematuria, fever or chills. No diarrhea or bloody stool. Patient with some nausea and vomiting due to the pain. Associated Symptoms: Reports constipation, nausea and vomiting; Denies chills, dysuria, fever(s) and hematuria Review of Systems General: Reports: 10 or more systems reviewed and unremarkable except in HPI and below Const: Denies: fever(s), chills, body aches, change in appetite, change in weight, fatigue, malaise or diaphoresis Resp: Denies: dyspnea, productive cough, non-productive cough, wheezing, pain on inspiration, change in phlegm color, hemoptysis or chest congestion GI: Reports: abdominal pain, nausea, vomiting and constipation : Reports: flank pain (left) and difficulty urinating (pt self cath ); Denies: dysuria, hematuria, genital lesions, penile discharge, testicular pain, testicular mass or difficulty with ejactulations Skin/Breast: Denies: rash, pruritus or erythema PFSH ED PFSH: Medical History Acute retention of urine Bladder diverticulum Bladder stone BPH (benign prostatic hyperplasia) Chronic insomnia Chronic pain Erectile dysfunction CHAMP (generalized anxiety disorder) Incomplete bladder emptying Lower urinary tract symptoms Prostate cancer PTSD (post-traumatic stress disorder) Renal stone Sepsis Urinary tract infection Surgical History History of back surgery History of bladder surgery History of elbow surgery History of prostate biopsy Status post colon resection SIGMOID RESECTION Status post decompression of ulnar nerve Family History Father , FATHER AT AGE 48-[place] No problems noted. Mother , AT AGE 80-[place] No problems noted. Social History Smoking and tobacco/nicotine status: never used tobacco/nicotine Alcohol intake: never Marital status: Current occupational status: disabled Current gender identity: Male Physical Exam Const: COMMON NORMALS: no acute distress, average body habitus, patient oriented x3, no limitations, healthy appearing, alert and well nourished Neck/C-Spine: COMMON NORMALS: no JVD Chest: COMMONS NORMALS: normal inspection of the chest, normal palpation of entire chest wall, normal inspection of the breasts and normal palpation of the breasts Breast/axilla inspection: Yes normal inspection of the breasts BREAST/AXILLA PALPATION: Yes normal palpation of the breasts Resp: COMMON NORMALS: normal respiratory effort, No retractions, No use of accessory muscles, clear to auscultation bilaterally and percussion normal AUSCULTATION: clear to auscultation bilaterally PERCUSSION: percussion normal Cardio: COMMON NORMALS: no JVD, regular rate, regular rhythm, S1 normal heart sound present, S2 normal heart sound present, No gallops present (Cardio), No clicks present (Cardio), No murmurs present (Cardio), No rub (Cardio) and Peripheral pulses 2+ throughout RATE: regular rate RHYTHM: regular rhythm HEART SOUNDS: S1 normal heart sound present and S2 normal heart sound present PERIPHERAL PULSES: Peripheral pulses 2+ throughout GI: COMMON NORMALS: Normal to inspection, nondistended, normoactive bowel sounds present, Soft to palpation, non-tender, No hepatosplenomegaly present, no masses and no bruits INSPECTION: Yes normal to inspection AUSCULTATION: Yes normoactive bowel sounds PALPATION: Yes Soft to palpation, Yes Tenderness to palpation present (GI) Details: LLQ, Yes No hepatosplenomegaly present, No Splenomegaly present, No Hernia present, No Palpable mass present, No Pulsatile mass present, No Ascites present and No Abdominal wall crepitus present Back/Pelvis: OTHER: left flank pain upon palpation Extremity: COMMON NORMALS: normal to inspection, full ROM, capillary refill normal, no joint enlargement, no clubbing, cyanosis or edema, no calf tenderness and no pedal edema Neuro: COMMON NORMALS: patient oriented x3 SENSORIUM/ORIENTATION: Yes alert Skin: COMMON NORMALS: no rashes or lesions noted, no wounds, turgor normal, no jaundice, no petechiae and no mottling GENERAL SKIN EXAM: no rashes or lesions noted and turgor normal Course Vital Signs: Vital signs: Vital Signs Temperature 98.1 F 04/06/23 12:54 Pulse Rate 90 04/06/23 17:21 Respiratory Rate 18 04/06/23 17:21 Blood Pressure 134/94 04/06/23 17:21 Pulse Oximetry 96 04/06/23 17:21 Oxygen Delivery Me thod Room Air 04/06/23 16:40 MDM - Abdominal Pain Medical Decision Making Patient made comfortable emergency room and had extensive work-up to include CBC, CMP, UA and CT scan. Patient was made comfortable in emergency room with IV pain medication. Patient is currently taking antibiotics and will continue antibiotics as directed. Close follow-up with urology recommended next few days. Patient was told to return to emergency room if his symptoms persist or worsen weakness 12 to 24 hours. Differential Diagnosis Likely abdominal pain, acute appendicitis, calculus of kidney, constipation, diverticulitis, endometriosis, gastroenteritis, pancreatitis and small bowel obstruction Lab Data 04/06/23 14:00 04/06/23 14:00 Labs/Radiology: Laboratory Results WBC 14.31 10^3/uL (3.29-11.43) H 04/06/23 14:00 RBC 5.01 10^6/uL (3.85-5.65) 04/06/23 14:00 Hgb 14.10 g/dL (11.27-16.99) 04/06/23 14:00 Hct 45.6 % (37-53) 04/06/23 14:00 MCV 91.0 fl (82-101) 04/06/23 14:00 MCH 28.1 pg (27-33) 04/06/23 14:00 MCHC 30.9 g/dL (30-55) 04/06/23 14:00 RDW 12.8 % (12.1-15.1) 04/06/23 14:00 Plt Count 288 10^3/cmm (157-399) 04/06/23 14:00 MPV 9.0 fL (7.4-10.4) 04/06/23 14:00 Neut % (Auto) 89.6 % 04/06/23 14:00 Lymph % (Auto) 6.3 % 04/06/23 14:00 [place] % (Auto) 3.6 % 04/06/23 14:00 Eos % (Auto) 0.1 % 04/06/23 14:00 Baso % (Auto) 0.1 % 04/06/23 14:00 Neut # (Auto) 12.83 10^3/uL (1.8-7.7) H 04/06/23 14:00 Lymph # (Auto) 0.9 10^3/uL (0.8-4.8) 04/06/23 14:00 [place] # (Auto) 0.5 10^3/uL (0.2-0.9) 04/06/23 14:00 Eos # (Auto) 0.0 10^3/uL (0.0-0.8) 04/06/23 14:00 Baso # (Auto) 0.0 10^3/uL (0.0-0.1) 04/06/23 14:00 Nucleated RBC % (auto) 0 % 04/06/23 14:00 Nucleated RBCs # 0.0 /100WBC 04/06/23 14:00 Sodium 137 mmol/L (136-145) 04/06/23 14:00 Potassium 3.9 mmol/L (3.5-5.1) 04/06/23 14:00 Chloride 102 mmol/L (98-107) 04/06/23 14:00 Carbon Dioxide 24 mmol/L (22-29) 04/06/23 14:00 Anion Gap 14.9 (5-19) 04/06/23 14:00 BUN 23 mg/dL (8-23) 04/06/23 14:00 Creatinine 1.0 mg/dL (0.7-1.2) 04/06/23 14:00 GFR Calculation 75.2 mL/min (90-130) L 04/06/23 14:00 Glucose 119 mg/dL (65-115) H 04/06/23 14:00 Calculated Osmolality 289 mOsm/kg (285-295) 04/06/23 14:00 Calcium 8.9 mg/dL (8.5-10.5) 04/06/23 14:00 Total Bilirubin 0.5 mg/dL (0.15-1.2) 04/06/23 14:00 AST 75 U/L (0-40) H 04/06/23 14:00 ALT 63 U/L (0-41) H 04/06/23 14:00 Alkaline Phosphatase 69 U/L (40-130) 04/06/23 14:00 Total Protein 7.2 g/dL (6.6-8.7) 04/06/23 14:00 Albumin 4.5 g/dL (3.5-5.2) 04/06/23 14:00 Globulin 2.7 g/dL (1.3-4.6) 04/06/23 14:00 Lipase 33 U/L (13-60) 04/06/23 14:00 Urine Color Red (Yellow) A 04/06/23 15:10 Urine Appearance Clear (CLEAR) 04/06/23 15:10 Urine pH 5 (5-7) 04/06/23 15:10 Ur Specific [place] 1.025 (1.005-1.030) 04/06/23 15:10 Urine Protein 1+ (Negative) H 04/06/23 15:10 Urine Glucose (UA) Norm (Normal) 04/06/23 15:10 Urine Ketones 1+ (Negative) H 04/06/23 15:10 Urine Blood 2+ (Negative) H 04/06/23 15:10 Urine Nitrate Not Reportable 04/06/23 15:10 Urine Bilirubin 1+ (Negative) H 04/06/23 15:10 Urine Urobilinogen 4 mg/dL (Negative) H 04/06/23 15:10 Ur Leukocyte Esterase Negative (Negative) 04/06/23 15:10 Urine RBC 15-25 /hpf (0-2) H 04/06/23 15:10 Urine WBC 0-4 /hpf (0-5) H 04/06/23 15:10 Ur Squamous Epith Cells 0-4 /hpf (0-5) H 04/06/23 15:10 Amorphous Sediment Not Reportable 04/06/23 15:10 Urine Bacteria None /hpf (NONE) 04/06/23 15:10 Hyaline Casts Rare /lpf 04/06/23 15:10 Urine Mucus 2+ /hpf 04/06/23 15:10 Ur Oval Fat Bodies 2+ /hpf 04/06/23 15:10 XR interpretation done by ED provider, pending radiology final review Discharge Plan Discharge Patient Disposition: Home Clinical Impression: Renal stone Condition: Stable Prescriptions: New Percocet 5-325 mg tablet 1 tab PO Q8H PRN (Reason: pain) Qty: 20 0RF No Action ascorbic acid (vitamin C) 1,000 mg tablet 1 g PO BID lubricants Gel 1 ea topical TID Qty: 113 5RF tramadol 50 mg tablet 50 mg PO BID PRN (Reason: pain) Qty: 60 3RF (DME) catheter Kit See Rx Instructions .Route Qty: 30 2RF Rx Instructions: Please issue #10, 12, 14 pre-lubricated speedy catheters. 10 each size lidocaine HCl 2 % jelly See Rx Instructions intra-urethral .COMPLEX Qty: 100 12RF Rx Instructions: Apply to catheter tip prior to insertion of catheter methenamine hippurate 1 gram tablet See Rx Instructions .ROUTE .COMPLEX Qty: 180 3RF Hold Instructions: Dose Change Dose Instruction: TAKE 1 TABLET BY MOUTH TWO TIMES DAILY *TAKE 1000 MG OF VITAMIN C. WITH EACH DOSE OF METHENAMINE TO START AFTER COMPLETING CIPRO* Rx Instructions: TAKE 1 TABLET BY MOUTH TWO TIMES DAILY *TAKE 1000 MG OF VITAMIN C. WITH EACH DOSE OF METHENAMINE lorazepam 0.5 mg tablet 0.5 mg PO DAILY PRN (Reason: anxiety) Qty: 20 5RF naproxen sodium [Aleve] 220 mg Tablet 660 mg PO Q8H PRN (Reason: Pain) ciprofloxacin HCl 500 mg tablet 500 mg PO BID tamsulosin 0.4 mg capsule 0.4 mg PO BID oxybutynin chloride 5 mg tablet 5 mg PO BID Discharge Orders: Discharge ED (Routine); Ordered 04/06/23 Ordered By: Claire Burnham Referrals: Salazar Meade DO [Primary Care Provider] - Discharge Diet: Advance as tolerated Discharge Activity: Resume usual activity Patient Instructions: Opioid Safety, Pain Management Coding Level of Care Code ED Improvement Analyst for Shira Reese
[2023-04-06] MEDS: iohexol 350 mg/mL 500 mL Btl (per mL) IV (15:05)
[2023-04-06 15:46] LABS: Blood Urine 2+ (Negative); Glucose Urine UA Norm (Normal); Ketones Urine 1+ (Negative); Protein Urine 1+ (Negative); Specific Gravity, Urine 1.025 (1.005-1.030); Urine Appearance Clear (CLEAR); Urine Color Red (Yellow); pH Urine 5 (5-7)
[2023-04-06 15:47] LABS: Add Urine Microscopic? YES; Bilirubin Urine 1+ (Negative); Leukocyte Esterase Urine Negative (Negative); Urobilinogen Urine 4 mg/dL (Negative)
[2023-04-06 15:54] LABS: Hyaline Casts Urine RARE /lpf; Mucus Urine 2+ /hpf; Oval Fat Bodies Urine 2+ /hpf; RBC Urine 15-25 /hpf (0-2); Squamous Epithelial Cell Urine 0-4 /hpf (0-5); WBC Urine 0-4 /hpf (0-5)
[2023-04-06 15:55] LABS: Add Urine Culture? Yes
[2023-04-06] MEDS: ketorolac 30 mg/mL INJ IVP (16:38)
[2023-04-06 16:40] VITALS: BP 165/90; PULSE 76; RESP 18; O2SAT 97
[2023-04-06 17:21] VITALS: BP 134/94; PULSE 90; RESP 18; O2SAT 96
== END 2023-04-06 17:22 | disposition home or self-care (01) ==
PROVIDERS: Nurse Practitioner Family; Emergency Provider Family Medicine; PCP Family Medicine
DX: N20.0 Calculus of kidney (principal); Z87.442 Personal history of urinary calculi; Z85.46 Personal history of malignant neoplasm of prostate
CPT/HCPCS: 74177; 80053; 81001; 83690; 85025; 87086; 96374; 96375; 99285; J1885; J2270; J2405; Q9967

== ENCOUNTER 2023-04-08 06:17 | Emergency (ER) | payer MEDICARE, MEDICAID, SELFPAY ==
[2023-04-08 06:21] VITALS: BP 140/96; PULSE 67; RESP 20; TEMP 36.6; O2SAT 94; BMI 29.6
--- NOTE | 2023-04-08 06:27 | XRR_ITS ---
PROCEDURE INFORMATION: Exam: XR Abdomen Exam date and time: 04/08/2023 7:03 AM Age: 62 years old Clinical indication: Other: Back pain; Additional info: Nephrolithiasis TECHNIQUE: Imaging protocol: Radiologic exam of the abdomen. Views: Frontal supine view of the abdomen. 1 View. Total images: 1 COMPARISON: CT abdomen pelvis w con* [id number] 04/06/2023 3:21 PM FINDINGS: Gastrointestinal tract: Bowel gas pattern is nondistended and nonobstructive. Organs: No renal, ureteral, nor bladder calculi detected. Bones/joints: Unremarkable. Other findings: Mild stool burden. XR/XR KUB portable [id number] IMPRESSION: 1. Normal bowel gas pattern 2. Mild stool burden. 3. No renal, ureteral, nor bladder calculi detected.
[2023-04-08 06:44] LABS: Basophils % 0.3 %; Eosinophils # 0.2 10^3/uL (0.0-0.8); Eosinophils % 1.7 %; Hematocrit 43.5 % (37-53); Lymphocytes # 2.1 10^3/uL (0.8-4.8); Lymphocytes % 19.5 %; Mean Corpuscular HGB Conc 30.6 g/dL (30-55); Mean Corpuscular Hemoglobin 28.5 pg (27-33); Mean Corpuscular Volume 93.3 fl (82-101); Mean Platelet Volume 8.9 fL (7.4-10.4); Monocytes # 0.9 10^3/uL (0.2-0.9); Monocytes % 8.2 %; Neutrophils # 7.64 10^3/uL (1.8-7.7); Nucleated Red Blood Cells % 0 %; Platelet Count 268 10^3/cmm (157-399); Red Blood Count 4.66 10^6/uL (3.85-5.65); White Blood Count 10.92 10^3/uL (3.29-11.43)
--- NOTE | 2023-04-08 07:15 | ED_ITS ---
HPI - Abdominal Pain General: Chief Complaint: Abdominal Pain Stated Complaint: severe lower back pain Time Seen by Provider: 04/08/23 06:21 Source: patient Mode of arrival: ambulatory History of Present Illness: 62-year-old male presents to the emergency room with complaint of right flank pain. He was seen 2 days ago in the emergency room CT was done to evaluate for nephrolithiasis showed a 5.9 mm stone just distal to the UPJ. Patient has been using Percocet at home to manage pain. Reports increased pain. No fever sweats chills MD elicited complaint: flank pain Pertinent past history: kidney stones Onset (ago): day(s) Pain Consistency: constant Location: L flank Severity: moderate Quality: sharp Exacerbating factors: nothing Relieving factors: nothing Associated Symptoms: Denies anorexia, belching, bloating, change in bowel habits, change in stool character, chills, coffee ground emesis, constipation, GI cramping, diarrhea, dyspepsia, dysuria, excessive flatus, fever(s), heartburn, hematochezia, hematuria, hematemesis, fecal incontinence, loose stools, melena, nausea, poor appetite, syncope and vomiting Review of Systems Const: Denies: fever(s) or chills Card: Denies: chest pain or syncope Resp: Denies: dyspnea GI: Denies: abdominal pain, nausea, vomiting, hematemesis, coffee ground emesis, heartburn, diarrhea, constipation, bloating, GI cramping, belching, excessive flatus, fecal incontinence, change in bowel habits, change in stool character, hematochezia or melena : Reports: flank pain; Denies: dysuria, urinary frequency, urinary urgency or hematuria Musc: Denies: neck pain or back pain Skin/Breast: Denies: rash PFSH ED PFSH: Medical History Acute retention of urine Bladder diverticulum Bladder stone BPH (benign prostatic hyperplasia) Chronic insomnia Chronic pain Erectile dysfunction CHAMP (generalized anxiety disorder) Incomplete bladder emptying Lower urinary tract symptoms Prostate cancer PTSD (post-traumatic stress disorder) Renal stone Sepsis Urinary tract infection Surgical History History of back surgery History of bladder surgery History of elbow surgery History of prostate biopsy Status post colon resection SIGMOID RESECTION Status post decompression of ulnar nerve Family History Father , FATHER AT AGE 48-[place] No problems noted. Mother , AT AGE 80-[place] No problems noted. Social History Smoking and tobacco/nicotine status: never used tobacco/nicotine Alcohol intake: never Marital status: Current occupational status: disabled Current gender identity: Male Physical Exam Const: COMMON NORMALS: no acute distress GENERAL APPEARANCE: cooperative and comfortable ORIENTATION/CONSCIOUSNESS: Yes awake, Yes oriented to person, Yes oriented to place and Yes oriented to time HENMT: COMMON NORMALS: normocephalic, atraumatic and hearing grossly normal bilaterally HEAD & SCALP: normocephalic and atraumatic Resp: COMMON NORMALS: normal respiratory effort, No retractions, No use of accessory muscles and clear to auscultation bilaterally AUSCULTATION: clear to auscultation bilaterally Cardio: COMMON NORMALS: regular rate, regular rhythm and No murmurs present (Cardio) RATE: regular rate RHYTHM: regular rhythm GI: COMMON NORMALS: Soft to palpation and No hepatosplenomegaly present AUSCULTATION: Yes normoactive bowel sounds PALPATION: Yes Soft to palpation, No Tenderness to palpation present (GI), No Guarding due to palpation present (GI) and Yes No hepatosplenomegaly present Extremity: COMMON NORMALS: normal to inspection, capillary refill normal, no clubbing, cyanosis or edema, no calf tenderness and no pedal edema Neuro: SENSORIUM/ORIENTATION: Yes oriented to person, Yes oriented to place and Yes oriented to time Skin: COMMON NORMALS: no rashes or lesions noted GENERAL SKIN EXAM: no rashes or lesions noted Course Vital Signs: Vital signs: Vital Signs Temperature 97.8 F 04/08/23 06:21 Pulse Rate 87 04/08/23 08:29 Respiratory Rate 16 04/08/23 08:29 Blood Pressure 119/81 04/08/23 08:29 Pulse Oximetry 94 04/08/23 08:29 Oxygen Delivery Me thod Room Air 04/08/23 08:29 MDM - Abdominal Pain Medical Decision Making Pain control at this time. Kidney function normal no sign hydronephrosis no sign of infection. No leukocytosis. Did have some mild leukocytosis at previous visit likely due to stress reaction. Gave a second prescription for Percocet and encouraged pain control at home continue Flomax strain urine to collect stone. Follow-up with urology next week. Return if pain is uncontrolled. Medical Records I reviewed the patient's medical records. Lab Data I reviewed the patient's lab results. 04/08/23 06:34 04/08/23 06:34 Labs/Radiology: Radiology Impressions KUB X-Ray 04/08/23 06:27 IMPRESSION: 1. Normal bowel gas pattern 2. Mild stool burden. 3. No renal, ureteral, nor bladder calculi detected. ADDENDUM: 04/08/23 0749 On further evaluation, there is 7 mm area of slight increased density projecting at the left transverse process of L3 may represent ureteral calculus seen on prior CT. Laboratory Results WBC 10.92 10^3/uL (3.29-11.43) 04/08/23 06:34 RBC 4.66 10^6/uL (3.85-5.65) 04/08/23 06:34 Hgb 13.30 g/dL (11.27-16.99) 04/08/23 06:34 Hct 43.5 % (37-53) 04/08/23 06:34 MCV 93.3 fl (82-101) 04/08/23 06:34 MCH 28.5 pg (27-33) 04/08/23 06:34 MCHC 30.6 g/dL (30-55) 04/08/23 06:34 RDW 13.0 % (12.1-15.1) 04/08/23 06:34 Plt Count 268 10^3/cmm (157-399) 04/08/23 06:34 MPV 8.9 fL (7.4-10.4) 04/08/23 06:34 Neut % (Auto) 70.0 % 04/08/23 06:34 Lymph % (Auto) 19.5 % 04/08/23 06:34 [place] % (Auto) 8.2 % 04/08/23 06:34 Eos % (Auto) 1.7 % 04/08/23 06:34 Baso % (Auto) 0.3 % 04/08/23 06:34 Neut # (Auto) 7.64 10^3/uL (1.8-7.7) 04/08/23 06:34 Lymph # (Auto) 2.1 10^3/uL (0.8-4.8) 04/08/23 06:34 [place] # (Auto) 0.9 10^3/uL (0.2-0.9) 04/08/23 06:34 Eos # (Auto) 0.2 10^3/uL (0.0-0.8) 04/08/23 06:34 Baso # (Auto) 0.0 10^3/uL (0.0-0.1) 04/08/23 06:34 Nucleated RBC % (auto) 0 % 04/08/23 06:34 Nucleated RBCs # 0.0 /100WBC 04/08/23 06:34 Sodium 139 mmol/L (136-145) 04/08/23 06:34 Potassium 4.0 mmol/L (3.5-5.1) 04/08/23 06:34 Chloride 102 mmol/L (98-107) 04/08/23 06:34 Carbon Dioxide 29 mmol/L (22-29) 04/08/23 06:34 Anion Gap 12.0 (5-19) 04/08/23 06:34 BUN 24 mg/dL (8-23) H 04/08/23 06:34 Creatinine 0.9 mg/dL (0.7-1.2) 04/08/23 06:34 GFR Calculation 85.0 mL/min (90-130) L 04/08/23 06:34 Glucose 125 mg/dL (65-115) H 04/08/23 06:34 Calculated Osmolality 294 mOsm/kg (285-295) 04/08/23 06:34 Calcium 8.7 mg/dL (8.5-10.5) 04/08/23 06:34 Urine Color [place] (Yellow) A 04/08/23 07:40 Urine Appearance Clear (CLEAR) 04/08/23 07:40 Urine pH TNP 04/08/23 07:40 Ur Specific [place] TNP 04/08/23 07:40 Urine Protein TNP 04/08/23 07:40 Urine Glucose (UA) TNP 04/08/23 07:40 Urine Ketones TNP 04/08/23 07:40 Urine Blood TNP 04/08/23 07:40 Urine Nitrate TNP 04/08/23 07:40 Urine Bilirubin TNP 04/08/23 07:40 Urine Urobilinogen TNP 04/08/23 07:40 Ur Leukocyte Esterase TNP 04/08/23 07:40 Urine RBC 5-10 /hpf (0-2) H 04/08/23 07:40 Urine WBC 0-4 /hpf (0-5) H 04/08/23 07:40 Ur Squamous Epith Cells None /hpf (0-5) 04/08/23 07:40 Amorphous Sediment Not Reportable 04/08/23 07:40 Urine Bacteria Trace /hpf (NONE) 04/08/23 07:40 All radiology interpretation(s) finalized by discharge Discharge Plan Discharge Patient Disposition: Home Clinical Impression: Renal stone Condition: Stable Prescriptions: New Percocet 5-325 mg tablet 1 tab PO Q6H PRN (Reason: pain) Qty: 20 0RF promethazine 25 mg tablet 25 mg PO Q6H PRN (Reason: nausea and vomiting) Qty: 20 0RF No Action ascorbic acid (vitamin C) 1,000 mg tablet 1 g PO BID lubricants Gel 1 ea topical TID Qty: 113 5RF tramadol 50 mg tablet 50 mg PO BID PRN (Reason: pain) Qty: 60 3RF (DME) catheter Kit See Rx Instructions .Route Qty: 30 2RF Rx Instructions: Please issue #10, 12, 14 pre-lubricated speedy catheters. 10 each size lidocaine HCl 2 % jelly See Rx Instructions intra-urethral .COMPLEX Qty: 100 12RF Rx Instructions: Apply to catheter tip prior to insertion of catheter methenamine hippurate 1 gram tablet See Rx Instructions .ROUTE .COMPLEX Qty: 180 3RF Hold Instructions: Dose Change Dose Instruction: TAKE 1 TABLET BY MOUTH TWO TIMES DAILY *TAKE 1000 MG OF VITAMIN C. WITH EACH DOSE OF METHENAMINE TO START AFTER COMPLETING CIPRO* Rx Instructions: TAKE 1 TABLET BY MOUTH TWO TIMES DAILY *TAKE 1000 MG OF VITAMIN C. WITH EACH DOSE OF METHENAMINE lorazepam 0.5 mg tablet 0.5 mg PO DAILY PRN (Reason: anxiety) Qty: 20 5RF naproxen sodium [Aleve] 220 mg Tablet 660 mg PO Q8H PRN (Reason: Pain) ciprofloxacin HCl 500 mg tablet 500 mg PO BID tamsulosin 0.4 mg capsule 0.4 mg PO BID oxybutynin chloride 5 mg tablet 5 mg PO BID oxycodone-acetaminophen [Percocet] 5-325 mg tablet 1 tab PO Q8H PRN (Reason: pain) Qty: 20 0RF Discharge Orders: Discharge ED (Routine); Ordered 04/08/23 Ordered By: Jaspal Edmond Referrals: Salazar Meade DO [Primary Care Provider] - Discharge Diet: Usual diet Discharge Activity: Resume usual activity Patient Instructions: Opioid Safety, Pain Management Activity Restrictions/Additional Instructions: Take pain medications as needed for the Coding Level of Care Code ED Cost Consultant for Shira Reese
[2023-04-08 07:17] VITALS: RESP 16; O2SAT 93
[2023-04-08] MEDS: morphine 4 mg/mL SDV 1 mL IVP (07:17)
[2023-04-08] MEDS: ondansetron 2 mg/ML SDV 2 mL 4 MG IVP (07:17)
[2023-04-08 08:03] LABS: Urine Appearance Clear (CLEAR); Urine Color Orange (Yellow)
[2023-04-08 08:04] LABS: Add Urine Culture? No; Add Urine Microscopic? YES; Bacteria Urine TRACE /hpf; WBC Urine 0-4 /hpf (0-5)
[2023-04-08 08:26] LABS: Blood Urea Nitrogen 24 mg/dL (8-23); Calcium 8.7 mg/dL (8.5-10.5); Carbon Dioxide 29 mmol/L (22-29); Chloride 102 mmol/L (98-107); Glucose 125 mg/dL (65-115); Osmolality Calculated 294 mOsm/kg (285-295); Sodium 139 mmol/L (136-145)
[2023-04-08 08:29] VITALS: BP 119/81; PULSE 87; RESP 16; O2SAT 94
[2023-04-08 09:27] VITALS: BP 137/77; PULSE 81; RESP 16; O2SAT 91
[2023-04-08 09:28] VITALS: BP 137/77; PULSE 81; RESP 12; O2SAT 91
== END 2023-04-08 09:35 | disposition home or self-care (01) ==
PROVIDERS: Emergency Provider Family Medicine; PCP Family Medicine
DX: N20.0 Calculus of kidney (principal); Z85.46 Personal history of malignant neoplasm of prostate; Z87.442 Personal history of urinary calculi
CPT/HCPCS: 36415; 74018; 80048; 81001; 85025; 87040; 96374; 96375; 99284; J2270; J2405

== ENCOUNTER 2023-04-12 16:12 | Emergency (ER) | payer MEDICARE, MEDICAID, SELFPAY ==
[2023-04-12 16:20] VITALS: BP 116/78; PULSE 91; RESP 14; TEMP 36.8; O2SAT 93
--- NOTE | 2023-04-12 17:02 | XRR_ITS ---
PROCEDURE INFORMATION: Exam: XR Abdomen Exam date and time: 04/12/2023 5:09 PM Age: 62 years old Clinical indication: Condition or disease; Kidney or ureter condition; Calculus (stone) in ureter; Additional info: Kidney stone TECHNIQUE: Imaging protocol: Radiologic exam of the abdomen. Views: Frontal supine view of the abdomen. 1 View. COMPARISON: CR (ABDOMEN, ) 04/08/2023 7:03 AM FINDINGS: Gastrointestinal tract: Nonobstructive intestinal gas pattern demonstrated. Excessive retained stool noted in the colon, suggesting constipation. Bones/joints: Unremarkable. Soft tissues: Kidneys and ureters: 6 mm calcification seen just caudal to the left L3 transverse process, unchanged. This may represent a persistent left ureteral calculus. XR/XR KUB [id number] IMPRESSION: 1. 6 mm calcification seen just caudal to the left L3 transverse process, unchanged. This may represent a persistent left ureteral calculus. This is unchanged from 04/08/2023. 2. Excessive retained stool noted in the colon, suggesting constipation.
--- NOTE | 2023-04-12 17:04 | W.ED.RECABL ---
HPI - Recheck/Abnormal Lab/Rx General: Chief Complaint: Recheck/Abnormal Lab/Rx Stated Complaint: kidney stones Time Seen by Provider: 04/12/23 16:38 Source: patient Mode of arrival: ambulatory Limitations: no limitations History of Present Illness: Patient is a nice 62-year-old male who presents to ED today with a complaint of pain related to a left ureter stone. He was seen here in our emergency department on 04/06 and diagnosed with a 5.9mm stone just distal to left UPJ. Patient states he is taking his pain medication, flomax, and ciprofloxacin. He was contacted by Dr. Ventura's office in [place] and was told they believe they can see him early next week. Patient states when he takes his pain medications his pain is controlled. Patient has history of prostate cancer with radiation requiring him to chronically self cath. He tried to go see his PCP Dr. Meade earlier today for pain medication refill but he was out of office today/doing fdc rounds. MD complaint: medication refill request Initial visit for: other (ureter stone) Returns today for: request for prescription Symptoms since prior visit: no new symptoms Context: ran out of medication Associated symptoms: none Review of Systems Const: Denies: fever(s), chills, body aches, fatigue or malaise Card: Denies: chest pain Resp: Denies: dyspnea GI: Denies: abdominal pain, nausea, vomiting, diarrhea or change in bowel habits : Denies: flank pain Musc: Reports: back pain (L mid back near where stone was previously located) Neuro: Denies: dizziness PFSH ED PFSH: Medical History Acute retention of urine Bladder diverticulum Bladder stone BPH (benign prostatic hyperplasia) Chronic insomnia Chronic pain Erectile dysfunction CHAMP (generalized anxiety disorder) Incomplete bladder emptying Lower urinary tract symptoms Prostate cancer PTSD (post-traumatic stress disorder) Renal stone Sepsis Urinary tract infection Surgical History History of back surgery History of bladder surgery History of elbow surgery History of prostate biopsy Status post colon resection SIGMOID RESECTION Status post decompression of ulnar nerve Family History Father , FATHER AT AGE 48-[place] No problems noted. Mother , AT AGE 80-[place] No problems noted. Social History Smoking and tobacco/nicotine status: never used tobacco/nicotine Alcohol intake: never Marital status: Current occupational status: disabled Current gender identity: Male Physical Exam Const: COMMON NORMALS: no acute distress, average body habitus, patient oriented x3, no limitations, healthy appearing, alert and well nourished Resp: COMMON NORMALS: normal respiratory effort and clear to auscultation bilaterally AUSCULTATION: clear to auscultation bilaterally Cardio: COMMON NORMALS: regular rate and regular rhythm RATE: regular rate RHYTHM: regular rhythm GI: COMMON NORMALS: Normal to inspection, nondistended, normoactive bowel sounds present, Soft to palpation, No hepatosplenomegaly present and no masses INSPECTION: Yes normal to inspection AUSCULTATION: Yes normoactive bowel sounds PALPATION: Yes Soft to palpation, Yes Tenderness to palpation present (GI) (mild left sided tenderness), No Guarding due to palpation present (GI), No Rigid due to palpation and Yes No hepatosplenomegaly present : COMMON NORMALS: Yes no CVA tenderness (tenderness slightly below L CVA) BLADDER/KIDNEY EXAM: Yes no CVA tenderness (tenderness slightly below L CVA) Back/Pelvis: COMMON NORMALS: no CVA tenderness (tenderness slightly below L CVA) Neuro: COMMON NORMALS: patient oriented x3 SENSORIUM/ORIENTATION: Yes alert Course Vital Signs: Vital signs: Vital Signs Temperature 98.2 F 04/12/23 16:20 Pulse Rate 91 04/12/23 16:20 Respiratory Rate 17 04/12/23 17:29 Blood Pressure 116/78 04/12/23 16:20 Pulse Oximetry 93 04/12/23 16:20 MDM - Recheck/Abnormal Lab/Rx Medical Decision Making Vital signs are stable. White count is normal. Kidney functions are normal. Urine without evidence of infection. He is already taking Cipro. KUB obtained-unfortunately stone does not appear to be moving. Patient states his pain is controlled with pain medications at home taking 1 tab every 4 hours or so. He states he has been contacted by Dr. Ventura's office and they believe they can see him early next week. Recommend he follow-up with primary care in the meantime. Return to ED precautions given. Lab Data 10/18/23 17:30 04/12/23 17:30 Radiology Impressions KUB X-Ray 04/12/23 17:02 IMPRESSION: 1. 6 mm calcification seen just caudal to the left L3 transverse process, unchanged. This may represent a persistent left ureteral calculus. This is unchanged from 04/08/2023. 2. Excessive retained stool noted in the colon, suggesting constipation. Laboratory Results WBC 6.19 10^3/uL (3.29-11.43) 04/12/23 17: RBC 4.37 10^6/uL (3.85-5.65) 04/12/23 17: Hgb 12.40 g/dL (11.27-16.99) 04/12/23 17: Hct 39.2 % (37-53) 04/12/23 17: MCV 89.7 fl (82-101) 04/12/23 17: MCH 28.4 pg (27-33) 04/12/23 17: MCHC 31.6 g/dL (30-55) 04/12/23 17: RDW 12.5 % (12.1-15.1) 04/12/23 17: Plt Count 262 10^3/cmm (157-399) 04/12/23 17: MPV 8.9 fL (7.4-10.4) 04/12/23 17:30 Neut % (Auto) 66.2 % 04/12/23 17:30 Lymph % (Auto) 17.6 % 04/12/23 17:30 [place] % (Auto) 12.6 % 04/12/23 17: Eos % (Auto) 3.1 % 04/12/23 17: Baso % (Auto) 0.3 % 04/12/23 17:30 Neut # (Auto) 4.10 10^3/uL (1.8-7.7) 04/12/23 17: Lymph # (Auto) 1.1 10^3/uL (0.8-4.8) 04/12/23 17:30 [place] # (Auto) 0.8 10^3/uL (0.2-0.9) 04/12/23 17:30 Eos # (Auto) 0.2 10^3/uL (0.0-0.8) 04/12/23 17:30 Baso # (Auto) 0.0 10^3/uL (0.0-0.1) 04/12/23 17:30 Nucleated RBC % (auto) 0 % 04/12/23 17:30 Nucleated RBCs # 0.0 /100WBC 04/12/23 17:30 Sodium 137 mmol/L (136-145) 04/12/23 17:30 Potassium 3.9 mmol/L (3.5-5.1) 04/12/23 17:30 Chloride 101 mmol/L (98-107) 04/12/23 17:30 Carbon Dioxide 27 mmol/L (22-29) 04/12/23 17:30 Anion Gap 12.9 (5-19) 04/12/23 17:30 BUN 20 mg/dL (8-23) 04/12/23 17:30 Creatinine 0.8 mg/dL (0.7-1.2) 04/12/23 17:30 GFR Calculation 97.3 mL/min (90-130) 04/12/23 17:30 Glucose 118 mg/dL (65-115) H 04/12/23 17:30 Calculated Osmolality 288 mOsm/kg (285-295) 04/12/23 17:30 Calcium 9.2 mg/dL (8.5-10.5) 04/12/23 17:30 Total Bilirubin 0.3 mg/dL (0.15-1.2) 04/12/23 17:30 AST 17 U/L (0-40) 04/12/23 17:30 ALT 19 U/L (0-41) 04/12/23 17:30 Alkaline Phosphatase 67 U/L (40-130) 04/12/23 17:30 Total Protein 6.3 g/dL (6.6-8.7) L 04/12/23 17:30 Albumin 3.6 g/dL (3.5-5.2) 04/12/23 17:30 Globulin 2.7 g/dL (1.3-4.6) 04/12/23 17:30 Urine Color [place] (Yellow) A 04/12/23 17:58 Urine Appearance Clear (CLEAR) 04/12/23 17:58 Urine pH 5 (5-7) 04/12/23 17:58 Ur Specific [place] 1.010 (1.005-1.030) 04/12/23 17:58 Urine Protein 2+ (Negative) H 04/12/23 17:58 Urine Glucose (UA) Norm (Normal) 04/12/23 17:58 Urine Ketones 1+ (Negative) H 04/12/23 17:58 Urine Blood Trace (Negative) H 04/12/23 17:58 Urine Nitrate (Negative) 04/12/23 17:58 Urine Bilirubin 2+ (Negative) H 04/12/23 17:58 Urine Urobilinogen 4 mg/dL (Negative) H 04/12/23 17:58 Ur Leukocyte Esterase Trace (Negative) H 04/12/23 17:58 Urine RBC 0-4 /hpf (0-2) H 04/12/23 17:58 Urine WBC 0-4 /hpf (0-5) H 04/12/23 17:58 Ur Squamous Epith Cells Rare /hpf (0-5) 04/12/23 17:58 Amorphous Sediment Not Reportable 04/12/23 17:58 Urine Bacteria Trace /hpf (NONE) 04/12/23 17:58 Urine Mucus Trace /hpf 04/12/23 17:58 All radiology interpretation(s) finalized by discharge Discharge Plan Discharge Patient Disposition: Home Clinical Impression: Calculus of left ureter Condition: Stable Prescriptions: Continued Percocet 5-325 mg tablet 1 tab PO Q6H PRN (Reason: pain) Qty: 20 0RF No Action ascorbic acid (vitamin C) 1,000 mg tablet 1 g PO BID lubricants Gel 1 ea topical TID Qty: 113 5RF tramadol 50 mg tablet 50 mg PO BID PRN (Reason: pain) Qty: 60 3RF (DME) catheter Kit See Rx Instructions .Route Qty: 30 2RF Rx Instructions: Please issue #10, 12, 14 pre-lubricated speedy catheters. 10 each size lidocaine HCl 2 % jelly See Rx Instructions intra-urethral .COMPLEX Qty: 100 12RF Rx Instructions: Apply to catheter tip prior to insertion of catheter methenamine hippurate 1 gram tablet See Rx Instructions .ROUTE .COMPLEX Qty: 180 3RF Hold Instructions: Dose Change Dose Instruction: TAKE 1 TABLET BY MOUTH TWO TIMES DAILY *TAKE 1000 MG OF VITAMIN C. WITH EACH DOSE OF METHENAMINE TO START AFTER COMPLETING CIPRO* Rx Instructions: TAKE 1 TABLET BY MOUTH TWO TIMES DAILY *TAKE 1000 MG OF VITAMIN C. WITH EACH DOSE OF METHENAMINE lorazepam 0.5 mg tablet 0.5 mg PO DAILY PRN (Reason: anxiety) Qty: 20 5RF naproxen sodium [Aleve] 220 mg Tablet 660 mg PO Q8H PRN (Reason: Pain) ciprofloxacin HCl 500 mg tablet 500 mg PO BID tamsulosin 0.4 mg capsule 0.4 mg PO BID oxybutynin chloride 5 mg tablet 5 mg PO BID oxycodone-acetaminophen [Percocet] 5-325 mg tablet 1 tab PO Q8H PRN (Reason: pain) Qty: 20 0RF promethazine 25 mg tablet 25 mg PO Q6H PRN (Reason: nausea and vomiting) Qty: 20 0RF Discharge Orders: Discharge ED (Routine); Ordered 04/12/23 Ordered By: Sarika Shay Referrals: Salazar Meade DO [Primary Care Provider] - Patient Instructions: Ureteral Stones (ED), Opioid Safety, Pain Management Activity Restrictions/Additional Instructions: Please continue plan for urology follow-up next week. Take your pain medications as sparingly as possible while trying to control your pain. You may return to the emergency department for uncontrollable pain, repetitive episodes of vomiting, fevers, severe flank pain, or any other concerns you may have. Coding Level of Care Code ED Dry Dip Worker for Shira Reese
[2023-04-12] MEDS: ketorolac 30 mg/mL INJ IM (17:28)
[2023-04-12 17:29] VITALS: RESP 17
[2023-04-12] MEDS: morphine 4 mg/mL SDV 1 mL IM (17:29)
[2023-04-12 17:41] LABS: Basophils % 0.3 %; Eosinophils # 0.2 10^3/uL (0.0-0.8); Eosinophils % 3.1 %; Hematocrit 39.2 % (37-53); Lymphocytes # 1.1 10^3/uL (0.8-4.8); Lymphocytes % 17.6 %; Mean Corpuscular HGB Conc 31.6 g/dL (30-55); Mean Corpuscular Hemoglobin 28.4 pg (27-33); Mean Corpuscular Volume 89.7 fl (82-101); Mean Platelet Volume 8.9 fL (7.4-10.4); Monocytes # 0.8 10^3/uL (0.2-0.9); Monocytes % 12.6 %; Neutrophils % 66.2 %; Nucleated Red Blood Cells % 0 %; Platelet Count 262 10^3/cmm (157-399); Red Blood Count 4.37 10^6/uL (3.85-5.65); Red Cell Distribution Width 12.5 % (12.1-15.1); White Blood Count 6.19 10^3/uL (3.29-11.43)
[2023-04-12 18:05] LABS: Alanine Aminotransferase 19 U/L (0-41); Albumin Level 3.6 g/dL (3.5-5.2); Alkaline Phosphatase 67 U/L (40-130); Anion Gap 12.9 (5-19); Aspartate Amino Transferase 17 U/L (0-40); Blood Urea Nitrogen 20 mg/dL (8-23); Calcium 9.2 mg/dL (8.5-10.5); Carbon Dioxide 27 mmol/L (22-29); Chloride 101 mmol/L (98-107); Globulin 2.7 g/dL (1.3-4.6); Glomerular Filtration Rate 97.3 mL/min (90-130); Glucose 118 mg/dL (65-115); Osmolality Calculated 288 mOsm/kg (285-295); Potassium 3.9 mmol/L (3.5-5.1); Sodium 137 mmol/L (136-145); Total Bilirubin 0.3 mg/dL (0.15-1.2); Total Protein 6.3 g/dL (6.6-8.7)
[2023-04-12 19:21] LABS: Blood Urine Trace (Negative); Glucose Urine UA Norm (Normal); Ketones Urine 1+ (Negative); Protein Urine 2+ (Negative); Urine Appearance Clear (CLEAR); Urine Color Orange (Yellow); pH Urine 5 (5-7)
[2023-04-12 19:23] LABS: Add Urine Microscopic? YES; Bilirubin Urine 2+ (Negative); Leukocyte Esterase Urine Trace (Negative); Urobilinogen Urine 4 mg/dL (Negative)
[2023-04-12 19:28] LABS: Add Urine Culture? No; Bacteria Urine TRACE /hpf; Mucus Urine TRACE /hpf; RBC Urine 0-4 /hpf (0-2); Squamous Epithelial Cell Urine RARE /hpf (0-5); WBC Urine 0-4 /hpf (0-5)
== END 2023-04-12 20:05 | disposition home or self-care (01) ==
PROVIDERS: Emergency Provider Physician Assistant; PCP Family Medicine
DX: N20.1 Calculus of ureter (principal); Z85.46 Personal history of malignant neoplasm of prostate; Z87.442 Personal history of urinary calculi
CPT/HCPCS: 36415; 74018; 80053; 81001; 85025; 96372; 99284; J1885; J2270

== ENCOUNTER → 2023-12-06 08:52 | Outpatient (BNVA) | payer MEDICARE, MEDICAID, SELFPAY | PROVIDERS: PCP Family Medicine; Visit Provider Family Medicine | DX: Z12.5 Encounter for screening for malignant neoplasm of prostate (principal); F41.1 Generalized anxiety disorder; N21.0 Calculus in bladder; C61 Malignant neoplasm of prostate; E55.9 Vitamin D deficiency, unspecified; R07.9 Chest pain, unspecified; E83.42 Hypomagnesemia | CPT/HCPCS: 80053; 80061; 81003; 82306; 83735; 84443; 85025; 87086; G0103 ==

== ENCOUNTER → 2024-06-11 11:55 | Outpatient (BNVA) | payer MEDICARE, MEDICAID, SELFPAY | PROVIDERS: PCP Family Medicine; Visit Provider Family Medicine | DX: R30.9 Painful micturition, unspecified | CPT/HCPCS: 81000; 87086 ==

== ENCOUNTER 2025-04-04 05:58 | Emergency (ER) | payer MEDICARE, SELFPAY ==
--- NOTE | 2025-04-04 06:06 | ED_ITS ---
HPI - General Adult 2 General: Chief complaint: Back Pain/Injury Stated complaint: back/flank pain Time Seen by Provider: 04/04/25 06:03 History of Present Illness: 64-year-old male presents emergency room complaining of bilateral flank pain last couple of days he initially was constipated took several laxatives had good results from that despite this he has persisted. Patient has a history of kidney stones he also intermittently self caths because of BPH. He has not had any fever sweats or chills. He has not noted any hematuria. He states this does feel similar to what he had in the past with renal stones. Denies any specific abdominal pain. Associated symptoms: Deny chest pain, dyspnea or rash Related Data Home Medications ?Medication ?Instructions ?Recorded ?Confirmed naproxen sodium 220 mg tablet 660 mg PO Q8H PRN Pain 1 12/10/24 (Aleve) Previous Rx's ?Medication ?Instructions ?Recorded catheter #30 ea 02/07/23 lidocaine HCl 2 % mucosal jelly See Rx Instructions in tra-urethral 03/16/23 .COMPLEX #100 mL ascorbic acid (vitamin C) 1,000 mg 1 g PO BID #180 tab s 06/11/24 tablet methenamine hippurate 1 gram tablet See Rx Instruction s .Route 12/10/24 .COMPLEX #180 tabs methocarbamol 500 mg tablet 500 mg PO TID PRN muscle s pasm 12/10/24 #180 tabs lorazepam 0.5 mg tablet 0.5 mg PO DAILY PRN anxiety #30 03/27/25 tabs tramadol 50 mg tablet 50 mg PO DAILY PRN pain #30 tabs 03/27/25 cefdinir 300 mg capsule 300 mg PO BID 10 days #20 ca ps 04/04/25 Allergies Allergy/AdvReac Type Severity Reaction Status Date / Time No Known Allergies Allergy Verified 04/04/25 06:11 Review of Systems 2 Const: Denies: fever(s) or chills Card: Denies: chest pain Resp: Denies: dyspnea GI: Denies: abdominal pain : Reports: flank pain; Denies: dysuria, urinary frequency or urinary urgency Musc: Denies: neck pain or back pain Skin/Breast: Denies: rash PFSH ED 2 PFSH: Medical History Renal stone Bladder stone Sepsis Acute retention of urine Urinary tract infection Incomplete bladder emptying Lower urinary tract symptoms Chronic insomnia Erectile dysfunction Prostate cancer BPH (benign prostatic hyperplasia) Bladder diverticulum CHAMP (generalized anxiety disorder) Chronic pain PTSD (post-traumatic stress disorder) Surgical History History of elbow surgery History of bladder surgery History of back surgery Status post colon resection SIGMOID RESECTION Status post decompression of ulnar nerve History of prostate biopsy Family History Father , FATHER AT AGE 48-[place] No problems noted. Mother , AT AGE 80-[place] No problems noted. Social History Smoking and tobacco/nicotine status: never used tobacco/nicotine Alcohol intake: never Marital status: Current occupational status: disabled Current gender identity: Male Physical Exam 2 Const: GENERAL APPEARANCE: cooperative ORIENTATION/CONSCIOUSNESS: Yes awake, Yes oriented to person, Yes oriented to place and Yes oriented to time HENMT: COMMON NORMALS: normocephalic, atraumatic and hearing grossly normal bilaterally HEAD & SCALP: normocephalic and atraumatic Resp: COMMON NORMALS: normal respiratory effort, No retractions, No use of accessory muscles and clear to auscultation bilaterally AUSCULTATION: clear to auscultation bilaterally Cardio: COMMON NORMALS: regular rate, regular rhythm and No murmurs present (Cardio) RATE: regular rate RHYTHM: regular rhythm GI: COMMON NORMALS: Soft to palpation and No hepatosplenomegaly present A USCULTATION: Yes normoactive bowel sounds PALPATION: Yes Soft to palpation, No Tenderness to palpation present (GI), No Guarding due to palpation present (GI) and Yes No hepatosplenomegaly present : BLADDER/KIDNEY EXAM: Yes CVA tenderness (Mild bilaterally) Back/Pelvis: GENERAL BACK: Yes CVA tenderness (Mild bilaterally) Extremity: COMMON NORMALS: normal to inspection, capillary refill normal, no clubbing, cyanosis or edema, no calf tenderness and no pedal edema Neuro: SENSORIUM/ORIENTATION: Yes oriented to person, Yes oriented to place and Yes oriented to time Skin: COMMON NORMALS: no rashes or lesions noted GENERAL SKIN EXAM: no rashes or lesions noted Course 2 Vital Signs: Vital signs: Vital Signs Temperature 98.1 F 04/04/25 06:07 Pulse Rate 77 04/04/25 07:18 Respiratory Rate 20 H 04/04/25 06:07 Blood Pressure 123/84 04/04/25 07:18 Pulse Oximetry 95 04/04/25 07:18 MDM - General Adult Medical Decision Making Patient seen evaluated labs ordered including CBC CMP and UA to evaluate for infection nephrolithiasis also consider musculoskeletal back. Less likely but still consideration would be biliary colic constipation bowel obstruction pancreatitis gastric ulcer or reflux disease. No microscopic hematuria. Character of pain consistent with nephrolithiasis at this time. Patient has been taking Cipro which he gets from Dr. Ventura in [place]. Because he gets this from Dr. Ventura is not showing up on our medicine list. Initially we were going to give him Cipro instead we will give him cefdinir and follow-up with the urine culture once completed Medical Records I reviewed the patient's medical records. Lab Data I reviewed the patient's lab results. 04/04/25 06:29 04/04/25 06:29 Laboratory Results WBC 7.69 10^3/uL (3.29-11.43) 04/04/25 06:29 RBC 4.79 10^6/uL (3.85-5.65) 04/04/25 06:29 Hgb 13.80 g/dL (11.27-16.99) 04/04/25 06:29 Hct 43.3 % (37-53) 04/04/25 06: MCV 90.4 fl (82-101) 04/04/25 06:29 MCH 28.8 pg (27-33) 04/04/25 06:29 MCHC 31.9 g/dL (30-55) 04/04/25 06:29 RDW 12.2 % (12.1-15.1) 04/04/25 06:29 Plt Count 232 10^3/cmm (157-399) 04/04/25 06:29 MPV 9.1 fL (7.4-10.4) 04/04/25 06: Neut % (Auto) 63.7 % 04/04/25 06: Lymph % (Auto) 22.4 % 04/04/25 06:29 [place] % (Auto) 9.8 % 04/04/25 06:29 Eos % (Auto) 3.4 % 04/04/25 06: Baso % (Auto) 0.4 % 04/04/25 06: Neut # (Auto) 4.91 10^3/uL (1.8-7.7) 04/04/25 06: Lymph # (Auto) 1.7 10^3/uL (0.8-4.8) 04/04/25 06:29 [place] # (Auto) 0.8 10^3/uL (0.2-0.9) 04/04/25 06: Eos # (Auto) 0.3 10^3/uL (0.0-0.8) 04/04/25 06: Baso # (Auto) 0.0 10^3/uL (0.0-0.1) 04/04/25 06: Nucleated RBC % (auto) 0 % 04/04/25 06: Nucleated RBCs # 0.0 /100WBC 04/04/25 06:29 Sodium 141 mmol/L (136-145) 04/04/25 06:29 Potassium 3.7 mmol/L (3.5-5.1) 04/04/25 06: Chloride 104 mmol/L (98-107) 04/04/25 06: Carbon Dioxide 26 mmol/L (22-29) 04/04/25 06:29 Anion Gap 14.7 (5-19) 04/04/25 06: BUN 17 mg/dL (8-23) 04/04/25 06: Creatinine 1.0 mg/dL (0.7-1.2) 04/04/25 06:29 GFR Calculation 74.8 mL/min (90-130) L 04/04/25 06:29 Glucose 137 mg/dL (65-115) H 04/04/25 06:29 Calculated Osmolality 296 mOsm/kg (285-295) H 04/04/25 06:29 Calcium 9.3 mg/dL (8.5-10.5) 04/04/25 06:29 Total Bilirubin 0.3 mg/dL (0.15-1.2) 04/04/25 06: AST 18 U/L (0-40) 04/04/25 06:29 ALT 18 U/L (0-41) 04/04/25 06:29 Alkaline Phosphatase 64 U/L (40-130) 04/04/25 06:29 Total Protein 6.5 g/dL (6.6-8.7) L 04/04/25 06:29 Albumin 3.8 g/dL (3.5-5.2) 04/04/25 06:29 Globulin 2.7 g/dL (1.3-4.6) 04/04/25 06:29 Urine Color [place] (Yellow) A 04/04/25 06:40 Urine Appearance Clear (CLEAR) 04/04/25 06:40 Urine pH 6.5 (5-7) 04/04/25 06:40 Ur Specific [place] 1.012 (1.005-1.030) 04/04/25 06:40 Urine Protein Negative (Negative) 04/04/25 06:40 Urine Glucose (UA) Negative (Normal) 04/04/25 06:40 Urine Ketones Negative (Negative) 04/04/25 06:40 Urine Blood Negative (Negative) 04/04/25 06:40 Urine Nitrate Positive (Negative) A 04/04/25 06:40 Urine Bilirubin Negative (Negative) 04/04/25 06:40 Urine Urobilinogen 1.0 mg/dL (Negative) 04/04/25 06:40 Ur Leukocyte Esterase 2+ (Negative) A 04/04/25 06:40 Urine RBC 0-2 /hpf (0-2) 04/04/25 06:40 Urine WBC 10-15 /hpf (0-5) H 04/04/25 06:40 Ur Squamous Epith Cells 0-2 /hpf (0-5) 04/04/25 06:40 Amorphous Sediment Not Reportable 04/04/25 06:40 Urine Bacteria 3+ /hpf (NONE) H 04/04/25 06:40 No radiology studies performed this visit Discharge Plan Discharge Patient Disposition: Home Clinical Impression: Urinary tract infection Qualifiers: Urinary tract infection type: site unspecified Hematuria presence: with hematuria Qualified Code(s): N39.0 - Urinary tract infection, site not specified Condition: Stable Prescriptions: New cefdinir 300 mg capsule 300 mg PO BID 10 Days Qty: 20 0RF No Action lubricants Gel 1 ea topical TID Qty: 113 5RF ascorbic acid (vitamin C) 1,000 mg tablet 1 g PO BID Qty: 180 5RF (DME) catheter Kit See Rx Instructions .Route Qty: 30 2RF Rx Instructions: Please issue #10, 12, 14 pre-lubricated speedy catheters. 10 each size methocarbamol 500 mg tablet 500 mg PO TID PRN (Reason: muscle spasm) Qty: 180 2RF methenamine hippurate 1 gram tablet See Rx Instructions .ROUTE .COMPLEX Qty: 180 3RF Dose Instruction: TAKE 1 TABLET BY MOUTH TWO TIMES DAILY *TAKE 1000 MG OF VITAMIN C. WITH EACH DOSE OF METHENAMINE TO START AFTER COMPLETING CIPRO* Rx Instructions: TAKE 1 TABLET BY MOUTH TWO TIMES DAILY *TAKE 1000 MG OF VITAMIN C. WITH EACH DOSE OF METHENAMINE lidocaine HCl 2 % jelly See Rx Instructions intra-urethral .COMPLEX Qty: 100 12RF Rx Instructions: Apply to catheter tip prior to insertion of catheter tramadol 50 mg tablet 50 mg PO DAILY PRN (Reason: pain) Qty: 30 5RF lorazepam 0.5 mg tablet 0.5 mg PO DAILY PRN (Reason: anxiety) Qty: 30 5RF naproxen sodium [Aleve] 220 mg Tablet 660 mg PO Q8H PRN (Reason: Pain) Discharge Orders: Discharge ED (Routine); Ordered 04/04/25 Ordered By: Jaspal Edmond Referrals: Salazar Meade DO [Primary Care Provider, [facility]] Discharge Diet: Usual diet Discharge Activity: Resume usual activity Patient Instructions: Opioid Safety, Pain Management, Patient Portal & Donald Instructions Activity Restrictions/Additional Instructions: Thank you for choosing [facility] for your healthcare needs today. It is very important that you follow up as instructed or that you return to the Emergency Department should you have concerns or if your condition changes or worsens in any way. Emergency department visits are focused on emergent conditions, in some cases you may require further evaluation on an outpatient basis. You were seen in the emergency room with complaint of bilateral flank pain. Urine showed signs of infection but no sign of nephrolithiasis. Hold ciprofloxacin previously prescribed by Dr. Ventura instead take cefdinir 1 tablet twice a day for 10 days. (Please note that included in your discharge packet is information concerning opioid safety and pain management. This information is given to all patients were discharged from the ER regardless of their discharge diagnosis or the medicines they usually take or are prescribed.) Print Language: Nepali Coding Level of Care Code ED Inside Technical Sales Representative for Shira Reese
[2025-04-04 06:07] VITALS: BP 128/85; PULSE 72; RESP 20; TEMP 36.7; O2SAT 94; BMI 25.0
[2025-04-04 06:10] VITALS: BP 123/84; PULSE 73; O2SAT 95
[2025-04-04 06:34] LABS: Hematocrit 43.3 % (37-53); Hemoglobin 13.80 g/dL (11.27-16.99); Mean Corpuscular HGB Conc 31.9 g/dL (30-55); Mean Corpuscular Hemoglobin 28.8 pg (27-33); Mean Corpuscular Volume 90.4 fl (82-101); Nucleated Red Blood Cells % 0 %; Platelet Count 232 10^3/cmm (157-399); Red Blood Count 4.79 10^6/uL (3.85-5.65); White Blood Count 7.69 10^3/uL (3.29-11.43)
[2025-04-04 06:51] LABS: Alanine Aminotransferase 18 U/L (0-41); Albumin Level 3.8 g/dL (3.5-5.2); Alkaline Phosphatase 64 U/L (40-130); Anion Gap 14.7 (5-19); Aspartate Amino Transferase 18 U/L (0-40); Blood Urea Nitrogen 17 mg/dL (8-23); Calcium 9.3 mg/dL (8.5-10.5); Carbon Dioxide 26 mmol/L (22-29); Chloride 104 mmol/L (98-107); Creatinine Clr Calc Pharmacy 72.9488; Globulin 2.7 g/dL (1.3-4.6); Glucose 137 mg/dL (65-115); Osmolality Calculated 296 mOsm/kg (285-295); Potassium 3.7 mmol/L (3.5-5.1); Sodium 141 mmol/L (136-145); Total Protein 6.5 g/dL (6.6-8.7)
[2025-04-04 06:54] LABS: Glucose Urine UA Negative (Normal); Nitrate Urine Positive (Negative); Specific Gravity, Urine 1.012 (1.005-1.030)
[2025-04-04 07:05] LABS: Add Urine Microscopic? YES; UA Manual Slide Review YES
[2025-04-04 07:18] VITALS: BP 123/84; PULSE 77; O2SAT 95
== END 2025-04-04 07:31 | disposition home or self-care (01) ==
PROVIDERS: Emergency Provider Family Medicine; PCP Family Medicine
DX: N39.0 Urinary tract infection, site not specified (principal)
CPT/HCPCS: 80053; 81001; 85025; 87086; 96374; 99284; J1885; J7030